=== PATIENT | female | born 1995 | race Caucasian/White ===

== ENCOUNTER 2025-02-04 13:16 | Outpatient (REF) | payer BC, SELFPAY ==
--- NOTE | ~2025-02-04 | MR_ITS ---
EXAMINATION: MR BRAIN WITHOUT CONTRAST CLINICAL INFORMATION: Fibromyalgia. Weakness and and numbness bilateral arm and hand. Ringing in ears. COMPARISON: None available. TECHNIQUE: MRI of the brain was obtained using routine sequences without contrast. FINDINGS: There is no restricted diffusion seen to suspect any acute ischemic changes. There is no susceptibility artifact either to suspect acute or chronic hemorrhagic products or calcification. The carbajal to white matter differentiation is maintained normal. The lateral ventricles are symmetrical in size and configuration without enlargement. Normal flow-void signal seen in major cerebral vasculature. No abnormal signal seen on T2 FLAIR sequences suspect any white matter changes or demyelinating plaques. The paranasal sinuses and mastoid air cells are well-aerated. Visualized bilateral orbits are unremarkable. No abnormality seen in the posterior fossa. MR/MR head/brain wo con IMPRESSION: Unremarkable MRI brain without contrast. Electronically signed by: Jonh Danielle MD 02/04/2025 04:03 PM EDT
== END 2025-02-04 13:17 | disposition home or self-care (01) ==
LOC: HO.MRI 13:16
PROVIDERS: Visit Provider Psychiatry & Neurology Neurology
DX: M79.7 Fibromyalgia (principal); R53.1 Weakness; R20.0 Anesthesia of skin; H93.19 Tinnitus, unspecified ear
CPT/HCPCS: 70551

== ENCOUNTER → 2025-02-04 13:25 | Outpatient (BNV) | payer BC, SELFPAY | PROVIDERS: Visit Provider Radiology Diagnostic Radiology | DX: M79.7 Fibromyalgia (principal); R53.1 Weakness; R20.2 Paresthesia of skin | CPT/HCPCS: 70551 ==

== ENCOUNTER 2025-02-08 06:28 | Emergency (ER) | payer BC, SELFPAY ==
--- NOTE | ~2025-02-08 | XR_ITS ---
EXAMINATION: XR CHEST CLINICAL INFORMATION: chest pain syncopie COMPARISON: None available. TECHNIQUE: Frontal view of the chest was obtained. FINDINGS: No consolidation, pleural effusion or pneumothorax. Cardiomediastinal silhouette size is normal. Mild S-shaped curvature of the mid thoracic spine. XR/XR chest 1V IMPRESSION: Normal chest x-ray. Mild dextroconvex scoliosis, mid thoracic spine. Electronically signed by: Peter Espana MD 02/08/2025 08:56 AM EDT
[2025-02-08 06:32] VITALS: BP 136/78; PULSE 85; RESP 16; TEMP 36.9; O2SAT 99; BMI 27.3
--- NOTE | 2025-02-08 06:43 | ECG_ITS ---
Test Reason : SYNCOPE Blood Pressure : */* mmHG Vent. Rate : 85 BPM Atrial Rate : 85 BPM P-R Int : 124 ms QRS Dur : 88 ms QT Int : 398 ms P-R-T Axes : 16 -7 4 degrees QTcB Int : 473 ms Normal sinus rhythm Normal ECG No previous ECGs available Referred By: Generic ED Physician Electronically Signed By: NENA SY MD
--- NOTE | 2025-02-08 07:20 | ED.SYNCOPE ---
HPI - Syncope General Chief Complaint: Syncope Stated Complaint: chest pain,fainted, slurred speech, confusion Time Seen by Provider: 02/08/25 07:04 History of Present Illness HPI narrative: Patient is a 30-year-old female presents today with having chest pain. The chest pain is mid chest. Is associated with some nausea. Today patient had some dizziness weakness nausea then felt somewhat lightheaded then also had an episode of syncope. Has a history of having possible POTS syndrome before patient denies any fever chills no cough no congestion or upper respiratory symptoms no sudden in the family. No travel no leg swelling. No history of blood clot not on blood thinners. Patient from home. Insert feeling somewhat nauseous. 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 Patient also had some mild coughing congestion upper respiratory symptoms. This is new. Ongoing for the last 2 days. Has a history of asthma. No history of diabetes, hypertension, high cholesterol, smoking, recreational drug use, mi. patient is from home. No risk stratification done in past. Patient describes the chest pain as constant it is mid chest. Started this morning. Not associated with shortness of breath or diaphoresis. May have been worsened with the nausea. No diarrhea. No sick contacts. No travel history. No recent antibiotics. No previous history of abdominal surgery. No history of bowel obstructions in the past Related Data Previous Rx's ?Medication ?Instructions ?Recorded levofloxacin 500 mg tablet 500 mg PO DAILY #10 tabs 05/25/23 meloxicam 15 mg tablet 15 mg PO DAILY #14 tabs 05/25/23 ondansetron 4 mg disintegrating 4 mg PO TID PRN nausea and 02/08/25 tablet vomiting 5 days #10 tabs Allergies Allergy/AdvReac Type Severity Reaction Status Date / Time amoxicillin [AMOXICILLIN] Allergy Unknown STOMACH Verified 02/08/25 08:41 UPSET Sulfa (Sulfonamide AdvReac hives Verified 02/08/25 08:41 Antibiotics) Review of Systems Review of Systems: Positive chest pain positive nausea PMFSH Past Medical History Attestation statement: The following information was validated with the patient. Social History Social History Advance Directives: No Advance Directives Information Provided: Yes Do you have a plan to hurt others: No Plan Physical Exam Vital Signs: Vital Signs: Last Vital Signs Temp 98.5 F 02/08/25 06:32 Pulse 85 02/08/25 06:32 Resp 16 02/08/25 06:32 BP 136/78 02/08/25 06:32 Pulse Ox 99 02/08/25 06:32 O2 Del Method Room Air 02/08/25 06:32 BMI result Body Mass Index 27.3 Appearance: Alert. Oriented X3. No acute distress. Eyes: Pupils equal, round and reactive to light. ENT: Pharynx normal. Neck: Normal inspection. Neck supple. No lymph nodes noted. No crepitus CVS: Normal heart rate and rhythm. Pulses normal. Normal S1 and S2 Respiratory: No respiratory distress. Breath sounds normal. No Wheezing. No rales Abdomen: Soft and nontender. No rigidity. No distention. good BS x4 Skin: Skin warm and dry. Normal skin color. Normal skin turgor. Extremities: No lower extremity edema. Neurovascular intact to all extremities. No Lacerations. No Rash Neuro: Oriented X 3. No motor deficit. No sensory deficit. Moving all extermities. No slurred speech Medications Administered Discontinued Medications Generic Name Dose Route Start Last Admin Trade Name Freq PRN Reason Stop Dose Admin Sodium Chloride 1,000 mls @ 999 mls/hr 02/08/25 07:30 02/08/25 09:56 Ns IV 02/08/25 08:30 Infused .Q1H1M NATHEN Infusion Sodium Chloride 1,000 mls @ 999 mls/hr 02/08/25 07:30 02/08/25 09:56 Ns IV 02/08/25 08:30 Infused .Q1H1M NATHEN Infusion Medical Decision Making Medical Decision Making [facility] Narrative: My interpretation patient's EKG showed a sinus rhythm heart rate is 70 NE QRS QTC normal no acute ST segment elevation noted. Two sets of cardiac enzymes are negative. Patient's history not consistent with ACS. Patient's passing out episode more consistent with having vasovagal episode. In no acute distress. Symptoms relieved after IV fluids. Electrolytes unremarkable. LFTs are normal lipase is normal no evidence for biliary disease. Patient's urine also negative for infection. test negative no related issue. Will discharge patient home close follow-up on an outpatient basis. Differential Diagnosis Differential Diagnoses: The differential diagnosis associated with the presentation includes Syncope versus ACS versus biliary issues versus gastritis versus vasovagal episode Admission/Observation Consideration of admission/observation: Escalation of care including admission/observation considered Lab Data MDM Lab Attestation statement: I reviewed the patient's lab results. 02/08/25 08:06 02/08/25 08:06 Labs: Lab Results 02/08/25 02/08/25 02/08/25 Range/Units 08:06 08:15 08:16 WBC 6.0 (4.8-10.8) X10*3/uL RBC 3.77 L (4.20-5.50) X10*6/uL Hgb 11.9 L (12.0-16.0) g/dl Hct 35.0 L (37.0-47.0) % MCV 92.8 (80.0-98.0) fL MCH 31.6 (27.0-33.0) pg MCHC 34.0 (31.0-35.0) g/dl RDW 12.6 (11.0-16.0) % Plt Count 242 (160-400) X10*3/uL MPV 10.3 (9.4-12.3) fL Immature Gran % (Auto) 0.2 (0.0-0.4) % Neut % (Auto) 56.4 (45-73) % Lymph % (Auto) 32.9 (20-40) % [place] % (Auto) 8.8 (2-11) % Eos % (Auto) 1.0 (0-4) % Baso % (Auto) 0.7 (0-2) % Lymph # (Auto) 2.0 (1.2-4.9) X10*3/uL [place] # (Auto) 0.5 (0.1-1.2) X10*3/uL Eos # (Auto) 0.1 (0.0-0.4) X10*3/uL Baso # (Auto) 0.0 (0.0-0.2) X10*3/uL Abs Immat Gran (auto) 0.01 (0.00-0.03) X10*3/uL Absolute Neuts (auto) 3.4 (2.0-8.3) x10*3/uL Absolute Nucleated RBC 0.000 (0.0-0.012) X10*3/uL Nucleated RBC % (auto) 0.0 (0.0-0.2) /100WBC Sodium 139 (135-145) mmol/L Potassium 3.7 (3.3-5.1) mmol/L Chloride 107 (96-108) mmol/L Carbon Dioxide 25 (22-29) mmol/L Anion Gap 11 L (12-20) BUN 9 (9-16) mg/dL Creatinine 0.73 (0.5-1.4) mg/dL Estim Creat Clear Calc 110.7 Estimated GFR > 60 Random Glucose 94 (60-115) mg/dL Calcium 9.1 (8.4-10.2) mg/dL Total Bilirubin 0.8 (0.0-1.0) mg/dL Direct Bilirubin 0.2 (0.0-0.5) mg/dL AST 23 (5-31) U/L ALT 14 (0-31) U/L Alkaline Phosphatase 56 (39-117) U/L Troponin I High Sens < 2.7 (<3.5-17.0) ng/L Total Protein 6.7 (6.5-8.0) g/dL Albumin 4.1 (3.5-5.0) g/dL Lipase 18 (8-78) U/L Urine Color Yellow Urine Appearance Clear Urine pH 6.5 (5.0-9.0) Ur Specific [place] 1.025 (1.005-1.025) Urine Protein Trace (Neg-Trace) mg/dL Urine Glucose (UA) Negative (Negative) mg/dL Urine Ketones Negative (Negative) mg/dL Urine Blood Negative (Negative) Urine Nitrite Negative (Negative) Ur Leukocyte Esterase Negative (Negative) Urine Test NEGATIVE (NEGATIVE) Influenza Type A (PCR) NEGATIVE (Negative) Influenza Type B (PCR) NEGATIVE (Negative) RSV RNA Qual (PCR) NEGATIVE (Negative) SARS-CoV-2 RNA (RT-PCR) NEGATIVE (Negative) 02/08/25 Range/Units 10:12 WBC (4.8-10.8) X10*3/uL RBC (4.20-5.50) X10*6/uL Hgb (12.0-16.0) g/dl Hct (37.0-47.0) % MCV (80.0-98.0) fL MCH (27.0-33.0) pg MCHC (31.0-35.0) g/dl RDW (11.0-16.0) % Plt Count (160-400) X10*3/uL MPV (9.4-12.3) fL Immature Gran % (Auto) (0.0-0.4) % Neut % (Auto) (45-73) % Lymph % (Auto) (20-40) % [place] % (Auto) (2-11) % Eos % (Auto) (0-4) % Baso % (Auto) (0-2) % Lymph # (Auto) (1.2-4.9) X10*3/uL [place] # (Auto) (0.1-1.2) X10*3/uL Eos # (Auto) (0.0-0.4) X10*3/uL Baso # (Auto) (0.0-0.2) X10*3/uL Abs Immat Gran (auto) (0.00-0.03) X10*3/uL Absolute Neuts (auto) (2.0-8.3) x10*3/uL Absolute Nucleated RBC (0.0-0.012) X10*3/uL Nucleated RBC % (auto) (0.0-0.2) /100WBC Sodium (135-145) mmol/L Potassium (3.3-5.1) mmol/L Chloride (96-108) mmol/L Carbon Dioxide (22-29) mmol/L Anion Gap (12-20) BUN (9-16) mg/dL Creatinine (0.5-1.4) mg/dL Estim Creat Clear Calc Estimated GFR Random Glucose (60-115) mg/dL Calcium (8.4-10.2) mg/dL Total Bilirubin (0.0-1.0) mg/dL Direct Bilirubin (0.0-0.5) mg/dL AST (5-31) U/L ALT (0-31) U/L Alkaline Phosphatase (39-117) U/L Troponin I High Sens < 2.7 (<3.5-17.0) ng/L Total Protein (6.5-8.0) g/dL Albumin (3.5-5.0) g/dL Lipase (8-78) U/L Urine Color Urine Appearance Urine pH (5.0-9.0) Ur Specific [place] (1.005-1.025) Urine Protein (Neg-Trace) mg/dL Urine Glucose (UA) (Negative) mg/dL Urine Ketones (Negative) mg/dL Urine Blood (Negative) Urine Nitrite (Negative) Ur Leukocyte Esterase (Negative) Urine Test (NEGATIVE) Influenza Type A (PCR) (Negative) Influenza Type B (PCR) (Negative) RSV RNA Qual (PCR) (Negative) SARS-CoV-2 RNA (RT-PCR) (Negative) Independent Interpretation I performed an independent interpretation of an: EKG (Sinus heart rate is 70 NE QRS QTC normal no acute ST segment elevation) and Plain X-Ray (Chest x-ray negative) Radiology Impression Discussion of test interpretation with radiology: I have reviewed the radiologist's reading. Prescription Management I considered prescription management with: Antibiotic (Not needed urine not infected) Chronic Conditions pots Discharge Plan Discharge Clinical Impression: Vasovagal syncope Patient Disposition: Home, Self-Care Instructions: Chest Pain (ED), Syncope (ED) Prescriptions: New ondansetron 4 mg tablet,disintegrating 4 mg PO TID PRN (Reason: nausea and vomiting) 5 Days Qty: 10 0RF No Action levofloxacin 500 mg tablet 500 mg PO DAILY Qty: 10 0RF meloxicam 15 mg tablet 15 mg PO DAILY Qty: 14 0RF Referrals: Physician,Unknown J [Primary Care Provider] - 02/10/25 Print Language: Greenlandic
[2025-02-08 08:11] LABS: MANUAL DIFF FLAG NO
[2025-02-08 08:12] LABS: Basophils Percent Auto 0.7 % (0-2); Eosinophils Absolute Auto 0.1 X10*3/uL (0.0-0.4); Hemoglobin 11.9 g/dl (12.0-16.0); Imm Gran Abs Auto 0.01 X10*3/uL (0.00-0.03); Imm Gran Pct Auto 0.2 % (0.0-0.4); Lymphocytes Percent Auto 32.9 % (20-40); Mean Corpuscular Hemoglobin 31.6 pg (27.0-33.0); Mean Corpuscular Volume 92.8 fL (80.0-98.0); Mean Platelet Volume 10.3 fL (9.4-12.3); Monocytes Absolute Auto 0.5 X10*3/uL (0.1-1.2); Monocytes Percent Auto 8.8 % (2-11); Neutrophils Absolute Auto 3.4 x10*3/uL (2.0-8.3); Neutrophils Percent Auto 56.4 % (45-73); Platelet Count 242 X10*3/uL (160-400); Red Blood Count 3.77 X10*6/uL (4.20-5.50); Red Cell Distribution Width 12.6 % (11.0-16.0)
[2025-02-08 08:26] LABS: Appearance Urine Clear; Color Urine Yellow; Glucose Urine UA Negative (Negative); Leukocyte Esterase Urine Negative (Negative); Nitrite Urine Negative (Negative); PH 6.5 (5.0-9.0); Specific Gravity - Urine 1.025 (1.005-1.025); Urine Blood Negative (Negative); Urine Ketones Negative (Negative); Urine Protein Trace mg/dL (Neg-Trace)
[2025-02-08 08:27] LABS: UPreg QC Valid YES; Urine Pregnancy NEGATIVE (NEGATIVE)
[2025-02-08 08:28] LABS: Anion Gap 11 (12-20); Blood Urea Nitrogen 9 mg/dL (9-16); Calcium 9.1 mg/dL (8.4-10.2); Carbon Dioxide 25 mmol/L (22-29); Chloride 107 mmol/L (96-108); Creatinine Clr Calc Pharmacy 110.7; Estimated Glomerular Filt Rate > 60; Glucose Random 94 mg/dL (60-115); Potassium 3.7 mmol/L (3.3-5.1); Sodium 139 mmol/L (135-145)
[2025-02-08 08:32] LABS: Alanine Aminotransferase 14 U/L (0-31); Albumin Level 4.1 g/dL (3.5-5.0); Alkaline Phosphatase 56 U/L (39-117); Aspartate Amino Transferase 23 U/L (5-31); Bilirubin Direct 0.2 mg/dL (0.0-0.5); Bilirubin Total 0.8 mg/dL (0.0-1.0); Lipase 18 U/L (8-78); Total Protein 6.7 g/dL (6.5-8.0)
[2025-02-08 08:40] LABS: Troponin-I High Sensitivity < 2.7 ng/L (<3.5-17.0)
[2025-02-08] MEDS: 0.9 % Sodium Chloride 1,000 ML 999 ML IV ×2 (08:41)
[2025-02-08 09:50] LABS: Influenza A PCR NEGATIVE (Negative); Influenza B PCR NEGATIVE (Negative); Resp Syncy Virus RNA Qual PCR NEGATIVE (Negative); SARS COV2 PCR INHOUSE NEGATIVE (Negative)
[2025-02-08 10:48] LABS: Troponin-I High Sensitivity < 2.7 ng/L (<3.5-17.0)
[2025-02-08 12:07] VITALS: BP 136/78; PULSE 85; RESP 16; TEMP 36.9; O2SAT 99
== END 2025-02-08 12:07 | disposition home or self-care (01) ==
PROVIDERS: Emergency Provider Emergency Medicine Emergency Medical Services
DX: R55 Syncope and collapse (principal); R47.81 Slurred speech; R41.0 Disorientation, unspecified; R42 Dizziness and giddiness; R05.9 Cough, unspecified; R11.0 Nausea; R07.89 Other chest pain; Z03.818 Encounter for observation for suspected exposure to other biological agents ruled out; Z79.899 Other long term (current) drug therapy
CPT/HCPCS: 0241U; 36415; 71045; 80048; 80076; 81003; 81025; 83690; 84484; 85025; 93005; 96360; 99284

== ENCOUNTER → 2025-02-08 06:43 | Outpatient (BNV) | payer BC, SELFPAY | PROVIDERS: Emergency Provider Emergency Medicine Emergency Medical Services; Visit Provider Internal Medicine Cardiovascular Disease | DX: R55 Syncope and collapse (principal) | CPT/HCPCS: 93010 ==

== ENCOUNTER → 2025-02-08 06:43 | Outpatient (BNV) | payer BC, SELFPAY | PROVIDERS: Emergency Provider Emergency Medicine Emergency Medical Services; Visit Provider Radiology Diagnostic Radiology | DX: R07.9 Chest pain, unspecified (principal) | CPT/HCPCS: 71045 ==

== ENCOUNTER 2025-08-10 10:15 | Outpatient (AMB) | payer BC, SELFPAY ==
[2025-08-10 10:18] VITALS: BP 118/70; PULSE 87; RESP 18; TEMP 36.3; O2SAT 98; BMI 27.0
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
--- OUTSIDE RECORDS SUMMARY | 2025-08-10 12:26 | XMS_ITS | Encounter Summary ---
Author Organization [facility] Address [address] [place] [id number] Phone Care Team Providers Care Kosher Dietary Service Supervisor Name Role Phone Zara Roberts [employer]ING [employer]SEM[employer]ER Primary Care Provider Un available Encounter Details Date Type Department Care Team (Late st Contact Info) Description 11/26/2011 Documentation EM Family Medicine [address] [place] [address] Family Medicine, Physician [address] [place], [place] [id number] Social History Tobacco Use Types Packs/Day Years Used Date Smoking Tobacco: Never Assessed Comments Unknown Sex and Gender Information Value Date Recorded Sex Assigned at Not on file Legal Sex Female 4:45 PM EDT Gender Identity Not on file Sexual Orientation Not on file documented as of this encounter Plan of Treatment Not on file documented as of this encounter Visit Diagnoses Not on filedocumented in this encounter Care Teams Kosher Dietary Service Supervisor Relationship Specialty Start Date End Date Zara Roberts NP PCP - General 06/28/17 documented as of this encounter
--- OUTSIDE RECORDS SUMMARY | 2025-08-10 12:26 | XMS_ITS | Encounter Summary ---
Author Organization [facility] Address [address] [place] [address] Care Team Providers Care Comic Writer Name Role Phone Sylvia Rose MD Primary Care Provider [phone] Reason for Visit * Reason Onset Date Comments No Show 08/06/2025 9.18.25 Encounter Details Date Type Department Care Team ([facility] st Contact Info) Description 08/06/[address] [facility] [address] [facility] [address] [place] [address] Erwin Marquez MD [address] [place] [address] [address] [place] [address] Social History Tobacco Use Types Packs/Day Years Used Date Smoking Tobacco: Never Smokeless Tobacco: Never Alcohol Use Standard Drinks/Week Comments Not Currently 0 (1 standard drink = 0.6 oz pur e alcohol) Housing Instability Answer Date Recorde d Are you worried that in the next 2 months you may not have stable housing? No 11/05/2024 Food Access & Nutrition Answer Date Rec orded Do you have access to a vari ety of food including fruits and vegetables? Yes 11/05/2024 Access to Healthcare Answer Date Record ed Within the last 3 months, ho w many times did you visit the emergency department for your medical care? 0 11/05/2024 Health Literacy Answer Date Recorded How often do you need to hav e someone help you when you read instructions, pamphlets, or other written material from your doctor or pharmacy? Never 11/05/2024 Caregiver: How often do you need to have someone help you when you read instructions, pamphlets, or other written material from your doctor or pharmacy? Not on file 11/05/2024 Financial Risk Answer Date Recorded How hard is it for you to pa y for the very basics like food, housing, medical care, and air conditioning / heating? Not very hard 11/05/2024 Transportation Answer Date Recorded Has the lack of transportati on kept you from meetings, work, or from getting things needed for daily living? No Has the lack of transportati on kept you from medical appointments or from getting medications? No 11/05/2024 Social Isolation Answer Date Recorded How often do you feel lonely or isolated from th ose around you? Rarely 11/05/2024 Food Risk Answer Date Recorded Within the past 12 months we worried whether our food would run out before we got money to buy more. Never true 11/05/2024 Within the past 12 months th e food we bought just didn't last and we didn't have money to get more. Never true 11/05/2024 Dependent Care Answer Date Recorded Do you need help finding or paying for care for your loved ones. For example, children's ministry director or elderly care for an older adult? No 11/05/2024 Education Answer Date Recorded Do you think completing more education or training, like finishing a GED, going to college, or learning a trade, would be helpful for you? N/A 11/05/2024 Employment and Income Answer Date Recor ded During the last four weeks, have you been actively looking for work? No 11/05/2024 Living Situation Answer Date Recorded What is your living situation? 1 01/06/2024 Comments No Sex and Gender Information Value Date Recorded Sex Assigned at Not on file Legal Sex Female 5:51 PM EST Gender Identity Not on file Sexual Orientation Not on file documented as of this encounter Progress Notes * Pati Shaikh MA - 08/06/2025 2:53 PM EDT Letter sent with information on no showed appointment and no show policy documented in this encounter Plan of Treatment Not on file documented as of this encounter Visit Diagnoses Not on filedocumented in this encounter Additional Health Concerns Assessment Noted Time PHQ-9 Depression Total Score: 1 11/05/20 24 6:05 AM EST documented as of this encounter Care Teams Comic Writer Relationship Specialty Start Date End Date Sylvia Rose MD [address] [place] [id number] PCP - General 08/06/24 documented as of this encounter
--- OUTSIDE RECORDS SUMMARY | 2025-08-10 12:26 | XMS_ITS | Clinical Summary ---
Author Organization [facility] Address [address] [place] [address] Care Team Providers Care Tour Operator Name Role Phone Ref, Has No Pcp Or Primary Care Provider Unavail able Allergies Active Allergy Reactions Criticality Noted Date Comments Amoxicillin Rash,Vomiting 11/28/2021 Sulfamethoxazole-Trimethopri m Back pain,Hives,Itching,Joint pain,Rash 11/28/2021 Medications fluticasone propionate (FLONASE) 50 mcg/actuation nasal spray Administer 1-2 sprays into each nostril once a day. 1 Active ibuprofen (MOTRIN) 800 mg tablet 1 Active albuterol (PROAIR HFA,VENTOLIN HFA) 90 mcg inhaler Inhale 2 puffs (180 mcg total) by mouth every 4 hours as needed for wheezing or shortness of breath. Use with spacer. 8.5 g 11 3 Active icatibant (FIRAZYR) 30 mg/3 mL subcutaneous injectionIndicati ons:Hereditary angioedema type 3 (HCC) Inject 30mg (3mL) under the skin injected into the abdominal area, and may repeat after 6 hours, maximum of 3 doses in a 24 hour period. 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 Asthma 11/28/2021 Social History Tobacco Use Types Packs/Day Years Used Date Smoking Tobacco: Never Smokeless Tobacco: Never Tobacco Cessation:Counseling Given: Not Answered Comments Unknown Sex and Gender Information Value Date Recorded Sex Assigned at Female 11/27/2021 10:52 PM EST Legal Sex Female 10:01 AM EST Gender Identity Female 11/27/2021 10:52 PM EST Sexual Orientation Bisexual 11/27/2021 10 :52 PM EST Last Filed Vital Signs Vital Sign Reading Time Taken Comments Blood Pressure 132/84 07/17/2022 10:00 AM EDT Pulse 84 07/17/2022 10:00 AM EDT Temperature - - Respiratory Rate 16 07/17/2022 10:00 AM EDT Oxygen Saturation 97% 07/17/2022 10:00 AM EDT Inhaled Oxygen Concentration - - Weight 67 kg (147 lb 12.8 oz) 07/17/2022 10:00 A M EDT Height 165.1 cm (5' 5 ) 07/17/2022 10:00 AM EDT Body Mass Index 24.6 07/17/2022 10:00 AM EDT Plan of Treatment Upcoming Encounters Date Type Department Care Team (Late st Contact Info) Description 10/28/2025 9:40 AM EST Follow-Up [facility] [address] [place] [id number] Human Machine Interface Engineer: Junior Morris, Real Tobin MD [address] [place] [address] [phone] Health Maintenance Due Date Last Done Comments HIV Screening 1996 Hepatitis C Screening 1996 Pneumococcal Vaccine: Pediat alida (0-5 Years) and At-Risk Patients (6-50 Years) (1 of 2 - PCV) 2015 Alcohol/Substance Use Screening 11/18/2024 Depression Screening and Follow-Up 11/18/2024 Social Drivers of Health Linda ual Screening 11/18/2024 COVID-19 Vaccine (3 - 2024-2 6 season) 2025 03/20/2021, 02/26/2021 Influenza Vaccine (#1) 2025 , 02/26/2021, 09/09/2013, Additional history exists Pap Smear 02/06/2026 02/06/2023 DTaP,Tdap,and Td Vaccines (8 - Td or Tdap) 09/12/2031 09/12/2021, 02/17/2007, 03/11/2000, Additional history exists RSV Vaccine (60+ years old a nd patients) (1 - 1-dose 75+ series) 2071 Hepatitis B Vaccines Completed 1996, 1996, 1996 Varicella Vaccines Completed 07/05/2010, 04/10/1999 Insurance HSNO/FREE CARE Care Teams Tour Operator Relationship Specialty Start Date End Date Ref, Has No Pcp Or DO NOT EDIT THIS RECORD VIA PROVIDER ON THE FLY PCP - General Fireworks Assembly Supervisor 10/20/24
--- OUTSIDE RECORDS SUMMARY | 2025-08-10 12:26 | XMS_ITS | Clinical Summary ---
Author Organization [facility] Address [address] [place] [address] Phone Care Team Providers Care Movement Assembly Final Inspector Name Role Phone Sylvia Rose MD Primary Care Provider [phone] Allergies Active Allergy Reactions Criticality Noted Date Comments Amoxicillin 09/08/2024 vomiting Sulfamethoxazole-Trimethopr im 09/08/2024 Prescribed for UTI , last day of dose of Bactrim had SOB and chest tightness treated with albuterol HIves, and joint pains Medications azelaic acid (FINACEA) 15 % gel APPLY THIN LAYER TO THE FACE ONCE NIGHTLY. 4 Active albuterol HFA (PROVENTIL HFA;VENTOLIN HFA) 108 (90 Base) MCG/ACT inhaler INHALE 2 PUFFS INTO THE LUNGS EVERY 4 HOURS NEEDED FOR COUGH OR WHEEZING OR SHORTNESS OF BREATH Active cholecalciferol (VITAMIN D3) 10 mcg/mL (400 unit/mL) liquid Take 1 Capsule by mouth daily. Per Derm - Oral Active fluticasone propionate (FLONASE) 50 mcg/actuation nasal spray 1-2 puffs each nostril daily Active ibuprofen (ADVIL,MOTRIN) 600 mg tablet TAKE 1 TABLET BY MOUTH EVERY 8 HOURS NEEDED FOR PAIN Active icatibant 30 mg/3 mL syringe Inject 30 mg into the skin every 6 hours as needed (HAE ATTACK). Inject into the abdomen over 30 seconds, using the 25 gauge needle provided. If laryngeal attack or tongue attack, please call 911 - Subcutaneous Active metFORMIN XR (GLUCOPHAGE-XR) 500 mg 24 hr tablet TAKE 1 TABLET BY MOUTH DAILY WITH BREAKFAST Active metroNIDAZOLE (METROGEL) 0.75 % gel Apply to face twice daily. Active ferrous sulfate 325 mg (65 mg elemental iron) tablet Take 1 tablet (325 mg total) by mouth 1 (one) time each day with breakfast. Active Active Problems Problem Noted Date Diagnosed Date Vasovagal syncope 08/04/2025 Anxiety 09/08/2024 COVID-19 09/08/2024 Hereditary angioedema (CMS/HCC V24, CMS/HCC V28) 09/08/2024 Mild intermittent asthma 09/08/2024 Seasonal allergic rhinitis 09/08/2024 Encounters Date Type Department Care Team Description 08/06/2025 Telephone [facility] [address] [facility] [address] [place] [address] Erwin Marquez MD from Last 3 Months Immunizations Name Administration Dates Next Due DTP 1996,1996,1996 DTaP (Infanrix) 6wks to less than 7yo ,07/26/1997,1996,05/13,1996 DTaP 5 pertussis antigens, D iptheria Tetanus acellular pertussis (Daptacel) 6wks to less than 7yo 03/11/2000,07/26/1997 DTaP, Unspecified 03/11/2000, 7,1996,05/13,1996 [id number] (Pentacel) 2mo to less than 5yo 04/02/1997,1996,1996,03/16 HPV, Quadrivalent 08/31/2008,04/29/2008,02/23/20 08 HPV, Unspecified 08/31/2008,04/29/2008, 8 Hepatitis B (Hovojfq-O-Bwecl , Recombivax HB-Adult) 19yo and older 1996,1996,1996 Hepatitis B Pediatric (Enger ix B; Recombivax HB) to less than 20 yo 1996,1996,1996 HiB 04/02/1997, 6,1996,03/16 HiB PRP-T conjugate (Acthib, Hiberix) 6wks and older 04/02/1997,1996,1996,03/16 IPV Inactivated polio (Ipol) 6wks and older 03/11/2000,07/26/1997,1996,05/13,1996 Influenza Quadrivalent, 0.5m l, preservative free (Fluarix; FluLaval; Fluzone) ages 6mo and older (Afluria) 3yo and older 09/09/2013 Influenza Split 08/01/2012,01/05/2011 Influenza trivalent, with pr eservative (Fluzone; Afluria) 6mo and older 08/31/2008 Influenza, Unspecified 03/20/2021,2020,08/01/2012,08/01,01/05/2011,01/05/2011,08/31/2008 MMR, measles mumps and rubel la Live (Priorix; M-M-R II) 12mo and older 03/11/2000,04/02/1997 Meningococcal MCV4P 02/17/2007 Meningococcal Polysaccharide 02/17/2007 Polio, Unspecified 03/11/2000, 7,1996,05/13,1996 Tdap Tetanus diptheria acell ular pertussis (Boostrix; Adacel) 7yo and older 09/12/2021,02/17/2007 Varicella live (Varivax) 12m o and older 07/05/2010,04/10/1999 Surgical History Surgery Date Site/Laterality Comments ESOPHAGOGASTRODUODENOSCOPY 05/31/2017 PROCEDURE: SD ESOPHAGOGASTRODUODENOSCOPY TRANSORAL DIAGNOSTIC; COMMENT: normal Medical History Medical History Date Comments Asthma DX:Asthma; COMME NT: on maitnence Vegetarian 06/19/2017 DX:Vegetarian Anxiety 09/22/2018 DX:Anxiety Covid-19 DX:COVID-19 Family History Medical History Relation Name Comments Other: Aspberger's Brother 1 Crohn's disease Brother 2 Arthritis Father Breast cancer Grandparent Great Grandmother Mothers s juan Other: Other Mother seizure disorde r Other: hereditary angioedema Mother Other cancer Paternal Grandmother Cervical cancer Neg Hx Uterine cancer Neg Hx Relation Name Status Comments Brother 1 Alive Brother 2 Alive Father Alive Grandparent Great Grandmother Alive Maternal Grandfather Alive Maternal Grandmother Alive Mother Alive Paternal Grandfather Paternal Grandmother Alive Social History Tobacco Use Types Packs/Day Years Used Date Smoking Tobacco: Never Smokeless Tobacco: Never Tobacco Cessation:Counseling Given: Not Answered Alcohol Use Standard Drinks/Week Comments Not Currently [...] care for your loved ones. For example, exceptional children teacher assistant or elderly care for an older adult? [...] on file Sexual Orientation Not on file Obstetrics History Last Filed Vital Signs Vital Sign Reading Time Taken Comments Blood Pressure 102/68 03/12/2025 1:54 PM EDT Pulse 100 03/12/2025 1:54 PM EDT Temperature 36.8 C (98.3 F) 03/12/2025 1:54 PM EDT Respiratory Rate - - Oxygen Saturation 100% 09/24/2024 3:30 PM EST Inhaled Oxygen Concentration - - Weight 69.9 kg (154 lb) 03/12/2025 1:54 PM EDT Height 160 cm (5' 3 ) 11/05/2024 9:35 AM EST Body Mass Index 27.28 11/05/2024 9:35 AM EST Plan of Treatment Health Maintenance Due Date Last Done Comments Pneumococcal Vaccine: Pediatrics (0 to 5 Years) and At-Risk Patients (6 to 49 Years) (1 of 2 - PCV) 2015 HIV Screening 10/12/2020 Hepatitis C Screening 10/12/2020 COVID-19 Vaccine (3 - Pfizer risk series) 04/17/2021 03/20/2021, 02/26/2021 Depression Screening 11/18/2024 11/05/2024 Influenza Vaccine (#1) 2025 , 02/26/2021, 09/09/2013, Additional history exists Social Influencers of Health Screening 11/05/2025 11/05/2024 Cervical Cancer Screening: Pap Smear 02/06/2026 02/06/2023, 02/06/2023, 02/06/2023, Additional history exists Cholesterol Screening (Lipid Panel) 01/27/2029 01/28/2024 DTaP,Tdap,and Td Vaccines (8 - Td or Tdap) 09/12/2031 09/12/2021, 02/17/2007, 03/11/2000, Additional history exists RSV Immunization Adult Patients (1 - 1-dose 75+ series) 2071 Hepatitis B Vaccines Completed 1996, 1996, 1996, Additional history exists HIB Vaccines Completed 04/02/1997, 03/18, 04/02/1997, Additional history exists IPV Vaccines Completed 03/11/2000, 02/17, 07/26/1997, Additional history exists MMR Vaccines Completed 03/11/2000, 04/02/1997 Meningococcal ACWY Vaccine Aged Out 02/17/2007, No longer eligible based on patient's age to complete this topic HPV Vaccines Completed 08/31/2008, 08/18, 04/29/2008, Additional history exists Varicella Vaccines Completed 07/05/2010, 04/10/1999 Gonorrhea/Chlamydia Screening Discontinued 07/27/2021 Hepatitis A Vaccines Aged Out No long er eligible based on patient's age to complete this topic Meningococcal B Vaccine Aged Out No l onger eligible based on patient's age to complete this topic RSV Immunization Patients Under 20 months Aged Out No longer eligible based on patient's age to complete this topic Procedures Procedure Name Priority Date/Time Associated Diagnosis Comments LIPID PANEL Routine 01/28/2024 PAP SMEAR Routine 02/06/2023 HM GONORRHEA/CHLAMYDIA SCRREENING Routine 07/27/2021 from Last 3 Months or Most Recently Relevant to Health Maintenance Results * Lipid panel (01/28/2024) LDL/HDL Ratio 2 0 - 4 Triglycerides 104 0 - 150 mg/dL Cholesterol 184 0 - 200 mg/dL HDL 82 >=40 mg/dL LDL Cholesterol 82 0 - 100 mg/dL Blood Venous blood specimen / Unknown Historical Provider LAB BLOOD ORDERABLES Graciela l Result * Pap smear (02/06/2023) 02/06/2023 Narrative HISTORICAL TESTING LAB RESULTING AGENCY - 02/18/2023 6:31 AM EDT [id number] THINPREP PAP, IMAGED: NEGATIVE FOR SQUAMOUS INTRAEPITHELIAL LESION AND MALIGNANCY . ABBI OWENS(ASCP) (CASE ELECTRONICALLY SIGNED 02 16 2023) ADEQUACY: SATISFACTORY ENDOCERVICAL/TRANSFORMATION ZONE COMPONENT PRESENT. SOURCE: THINPREP PAP HPV IF ASCUS, CERVICAL, IMAGED CLINICAL INFORMATION: HPV IF DIAGNOSIS OF ASCUS. HORMONES, PAP HX NEGATIVE, [Z01.419] Jane Parks CNM LAB CYTOLOGY ORDERABLES Final Result HISTORICAL TESTING LAB RESULTING AGENCY * Gonorrhea/Chlamydia Screening (07/27/2021) Gonorrhea/Chla mydia Screening abstracted Historical Provider HEALTH MAINTENANCE Final Result from Last 3 Months or Most Recently Relevant to Health Maintenance Insurance [facility] Care Teams Movement Assembly Final Inspector Relationship Specialty Start Date End Date Sylvia Rose MD [address] [place] [address] [place] [address] PCP - General 08/06/24
--- OUTSIDE RECORDS SUMMARY | 2025-08-10 12:26 | XMS_ITS | Clinical Summary ---
Author Organization [facility] Address [address] [place] [phone] Phone Care Team Providers Care Almond Paste Molder Name Role Phone Zara Roberts NP Primary Care Provider Un available Immunizations Immunization Administration Dates Next Due DTP 1996,1996,1996 DTaP 5 03/11/2000,07/26/1997 HPV, Quadrivalent 08/31/2008,04/29/2008,02/23/20 08 Hep B, ped/adol 1996,1996,1996 Hib (PRP-T) 04/02/1997,199 6,1996,03/16 IPV 03/11/2000, 7,1996,05/13,1996 Influenza Split 08/01/2012,01/05/2011 Influenza, injectable, quadr ivalent, preservative free 09/09/2013 Influenza, injectable, trivalent 08/31/2008 MMR 03/11/2000,04/02/1997 Meningococcal Conj (Menactra) MCV4P 02/17/2007 Tdap 02/17/2007 Varicella 07/05/2010,04/10/1999 Family History Relation Name Status Comments Brother Brother: ADD/AD HD Father Alive Father: Alive a nd well, Migraines Mother Mother: Seizure disorder, Angiodema, Migraines Other Family history of Diabetes mellitus, Family history of Obesity, Family history of Elevated cholesterol Social History Tobacco Use Types Packs/Day Years Used Date Smoking Tobacco: Never Comments:Never smoker Comments Unknown Sex and Gender Information Value Date Recorded Sex Assigned at Not on file Legal Sex Female 4:45 PM EDT Gender Identity Not on file Sexual Orientation Not on file Last Filed Vital Signs Vital Sign Reading Time Taken Comments Blood Pressure 116/73 10/08/2013 12:00 AM EST Pulse 84 10/08/2013 12:00 AM EST Temperature 36.6 C (97.8 F) 10/08/2013 12:00 AM EST Respiratory Rate - - Oxygen Saturation - - Inhaled Oxygen Concentration - - Weight 60.8 kg (134 lb) 10/08/2013 12:00 AM EST Height 162.6 cm (5' 4 ) 10/08/2013 12:00 AM EST Body Mass Index 23 10/08/2013 12:00 AM EST Plan of Treatment Health Maintenance Due Date Last Done Comments DTaP,Tdap,and Td Vaccines (7 - Td or Tdap) 02/17/2017 02/17/2007, 03/11/2000, 07/26/1997, Additional history exists Influenza Vaccines (#1) 2025 09/09/20 13, 08/01/2012, 01/05/2011, Additional history exists COVID-19 Vaccine ( season) 2025 Hepatitis B Vaccines Completed 1996, 1996, 1996 HIB Vaccines Completed 04/02/1997, 06/19, 1996, Additional history exists IPV Vaccines Completed 03/11/2000, 06/1997, 1996, Additional history exists MMR Vaccines Completed 03/11/2000, 04/02/1997 Meningococcal Vaccine Aged Out 02/17/2007 No jacqueline oksana eligible based on patient's age to complete this topic HPV Vaccines Completed 08/31/2008, 04/18, 02/23/2008 Varicella Vaccines Completed 07/05/2010, 04/10/1999 Hepatitis A Vaccines Aged Out No long er eligible based on patient's age to complete this topic Men B Vaccine Aged Out No longer elig ible based on patient's age to complete this topic Pneumococcal Vaccine Aged Out No long er eligible based on patient's age to complete this topic Care Teams Almond Paste Molder Relationship Specialty Start Date End Date Zara Roberts NP PCP - General 06/28/17
--- OUTSIDE RECORDS SUMMARY | 2025-08-10 12:26 | XMS_ITS | Encounter Summary ---
Author Organization [facility] Address [address] [place] [phone] Phone Care Team Providers Care Insert Operator Name Role Phone Zara Roberts REMOTE CONTROL ASSEMBLER Primary Care Provider Un available Encounter Details Date Type Department Care Team (Late st Contact Info) Description 07/04/2017 Conversion Encounter [facility] - [address] [address] Social History Tobacco Use Types Packs/Day Years [...] on filedocumented in this encounter Care Teams Insert Operator Relationship Specialty Start Date End Date Zara Roberts NP PCP - General 06/28/17 documented as of this encounter
== END 2025-08-10 12:12 | disposition home or self-care (01) ==
LOC: HO.HMCH 10:16
DX: F32.81 Premenstrual dysphoric disorder (principal); M25.50 Pain in unspecified joint; M54.2 Cervicalgia; R53.83 Other fatigue; R55 Syncope and collapse; R42 Dizziness and giddiness; K59.00 Constipation, unspecified; R14.0 Abdominal distension (gaseous); E55.9 Vitamin D deficiency, unspecified; G43.109 Migraine with aura, not intractable, without status migrainosus

== ENCOUNTER 2025-08-10 10:15 | Outpatient (REF) | payer BC, SELFPAY ==
--- NOTE | ~2025-08-10 | XR_ITS ---
EXAM: Three-view cervical spine x-ray TECHNIQUE: AP, lateral, open-mouth odontoid x-rays of the cervical spine INDICATION: Cervicalgia PRIOR: None FINDINGS: There is straightening of the cervical lordosis. There is no prevertebral soft tissue swelling. Disc spaces are preserved. No degenerative changes are evident. No fracture lines are visualized. XR/XR cervical spine 3V IMPRESSION: There is straightening of the expected cervical lordosis. This can be idiopathic, but can also be related to muscle spasm, or posterior soft tissue injury. Electronically signed by: José Coats MD 08/10/2025 01:18 PM EDT
[2025-08-10 12:48] LABS: MANUAL DIFF FLAG NO
[2025-08-10 14:20] LABS: Hematocrit 37.1 % (37.0-47.0); Hemoglobin 12.3 g/dl (12.0-16.0); Imm Gran Abs Auto 0.01 X10*3/uL (0.00-0.03); Imm Gran Pct Auto 0.2 % (0.0-0.4); Lymphocytes Absolute Auto 1.4 X10*3/uL (1.2-4.9); Mean Corpuscular HGB Conc 33.2 g/dl (31.0-35.0); Mean Corpuscular Hemoglobin 31.1 pg (27.0-33.0); Mean Corpuscular Volume 93.7 fL (80.0-98.0); NRBC Abs Auto 0.000 X10*3/uL (0.0-0.012); NRBC Pct Auto 0.0 /100WBC (0.0-0.2); Platelet Count 283 X10*3/uL (160-400); Red Blood Count 3.96 X10*6/uL (4.20-5.50); White Blood Count 4.5 X10*3/uL (4.8-10.8)
[2025-08-10 14:32] LABS: Appearance Urine Clear; Glucose Urine UA Negative (Negative); PH 6.0 (5.0-9.0); Specific Gravity - Urine 1.015 (1.005-1.025)
[2025-08-10 14:54] LABS: Alanine Aminotransferase 13 U/L (0-31); Albumin Level 4.7 g/dL (3.5-5.0); Alkaline Phosphatase 55 U/L (39-117); Anion Gap 12 (12-20); Aspartate Amino Transferase 21 U/L (5-31); Blood Urea Nitrogen 7 mg/dL (9-16); Calcium 9.4 mg/dL (8.4-10.2); Carbon Dioxide 26 mmol/L (22-29); Chloride 106 mmol/L (96-108); Estimated Glomerular Filt Rate > 60; Potassium 4.0 mmol/L (3.3-5.1); Sodium 140 mmol/L (135-145); Total Protein 7.3 g/dL (6.5-8.0)
[2025-08-11 15:54] LABS: Anti Nuclear Antibody Screen POSITIVE (NEGATIVE); Anti Nuclear Antibody Titer 1:80 titer
[2025-08-11 17:58] LABS: Transglutaminase Ab IgG <1.0 U/mL
== END 2025-08-10 10:16 | disposition home or self-care (01) ==
LOC: HO.XRAY 10:15
DX: F32.81 Premenstrual dysphoric disorder (principal); Z34.90 Encounter for supervision of normal pregnancy, unspecified, unspecified trimester; M25.50 Pain in unspecified joint; M54.2 Cervicalgia; R53.83 Other fatigue; R55 Syncope and collapse; R42 Dizziness and giddiness; K59.00 Constipation, unspecified; R14.0 Abdominal distension (gaseous); E55.9 Vitamin D deficiency, unspecified; G43.109 Migraine with aura, not intractable, without status migrainosus
CPT/HCPCS: 36415; 72040; 80053; 81003; 84443; 84702; 85025; 85652; 86038; 86039; 86141; 86364; 96127

== ENCOUNTER → 2025-08-10 12:55 | Outpatient (BNV) | payer BC, SELFPAY | PROVIDERS: Visit Provider Radiology Diagnostic Radiology | DX: M54.2 Cervicalgia (principal) | CPT/HCPCS: 72040 ==

== ENCOUNTER 2025-09-21 11:01 | Outpatient (REF) | payer BC, SELFPAY ==
--- NOTE | ~2025-09-21 | XR_ITS ---
EXAMINATION: XR ABDOMEN COMPLETE CLINICAL INDICATION: R10.31 - Right lower quadrant pain COMPARISON: Correlated to CT dated October 15, 2017. TECHNIQUE: AP views in upright and semiupright position. of the abdomen. FINDINGS: Gas throughout the nondilated intestine. Stool within nondilated intestine. No air-fluid levels. No free air beneath the diaphragm. The upright view excludes the right lower hemithorax and right hemidiaphragm. XR/XR abdomen min 2V IMPRESSION: No intestinal obstruction pattern. Electronically signed by: Peter Espana MD 09/21/2025 01:15 PM EDUARDO WOOD
[2025-09-21 12:35] LABS: Appearance Urine Clear; Glucose Urine UA Negative (Negative); PH 6.5 (5.0-9.0); Specific Gravity - Urine 1.010 (1.005-1.025)
--- OUTSIDE RECORDS SUMMARY | 2025-09-21 14:52 | XMS_ITS | Clinical Summary ---
Author Organization [facility] Address [address] [place] [address] Phone Care Team Providers Care Ornamental Bronze Worker Name Role Phone Sylvia Rose MD Primary Care Provider [phone] Allergies Active Allergy Reactions Criticality Noted Date [...] Type Department Care Team Description 08/06/2025 Telephone [facility] [address] [facility] [address] [place] [address] Erwin Marquez MD from Last 3 Months Immunizations Immunization Administration Dates Next Due DTP 1996,1996,1996 DTaP (Infanrix) 6wks to less than 7yo ,07/26/1997,1996,05/13,1996 DTaP 5 pertussis antigens, D iptheria Tetanus acellular pertussis (Daptacel) 6wks to less than 7yo 03/11/2000,07/26/1997 DTaP, Unspecified 03/11/2000, 7,1996,05/13,1996 [id number]-[id number]-[id number] (Pentacel) 2mo to less than 5yo 04/02/1997,1996,1996,03/16 HPV, Quadrivalent 08/31/2008,04/29/2008,02/23/20 08 HPV, Unspecified 08/31/2008,04/29/2008, 8 Hepatitis B (Kgiqpio-Y-Pjrxu , Recombivax HB-Adult) 19yo and older 1996,1996,1996 [...] Surgery Date Site/Laterality Comments ESOPHAGOGASTRODUODENOSCOPY 05/31/2017 PROCEDURE: OK ESOPHAGOGASTRODUODENOSCOPY TRANSORAL DIAGNOSTIC; COMMENT: normal Medical History [...] care for your loved ones. For example, child care coordinator or elderly care for an older adult? [...] Date Recorded What is your living situation? Unrecognized valu e 11/05/2024 Comments No Sex and Gender Information Value [...] RESULTING AGENCY - 02/18/2023 6:31 AM EDT [id number] THINPREP PAP, IMAGED: NEGATIVE FOR SQUAMOUS INTRAEPITHELIAL LESION AND MALIGNANCY . ABBI OWENS(ASCP) (CASE ELECTRONICALLY SIGNED 02 16 2023) ADEQUACY: SATISFACTORY ENDOCERVICAL/TRANSFORMATION ZONE COMPONENT PRESENT. SOURCE: THINPREP PAP HPV IF ASCUS, CERVICAL, IMAGED CLINICAL INFORMATION: HPV IF DIAGNOSIS OF ASCUS. HORMONES, PAP HX NEGATIVE, [Z01.419] Jane Parks CNM LAB CYTOLOGY ORDERABLES Final Result HISTORICAL TESTING LAB RESULTING AGENCY * Gonorrhea/Chlamydia Screening (07/27/2021) HM Gonorrhea/Chla mydia Screening abstracted Historical Provider HEALTH MAINTENANCE Final Result from Last 3 Months or Most Recently Relevant to Health Maintenance Insurance [facility] Care Teams Ornamental Bronze Worker Relationship Specialty Start Date End Date Sylvia Rose MD [address] [place] [address] [place] [address] PCP - General 08/06/24
--- OUTSIDE RECORDS SUMMARY | 2025-09-21 14:52 | XMS_ITS | Clinical Summary ---
Author Organization [facility] Address [address] [place] [phone] Phone Care Team Providers Care Sales Marketing Name Role Phone Zara Roberts NP Primary [...] 08/01/2012, 01/05/2011, Additional history exists COVID-19 Vaccine (2024- season) 2025 Hepatitis B Vaccines Completed 1996, [...] age to complete this topic Care Teams Sales Marketing Relationship Specialty Start Date End Date Zara Roberts NP PCP - General 06/28/17
--- OUTSIDE RECORDS SUMMARY | 2025-09-21 14:52 | XMS_ITS | Encounter Summary ---
Author Organization [facility] Address [address] [place] [address] Phone Care Team Providers Care Traffic Control Technician Name Role Phone Zara Roberts PEA VINER MECHANIC Primary Care Provider Un available Encounter Details Date Type Department Care Team (Late st Contact Info) Description 11/26/2011 Documentation EM Family Medicine [address] [place] [address] Family Medicine, Physician [address] [place], [place] [id number] Social History Tobacco Use Types Packs/Day Years [...] on filedocumented in this encounter Care Teams Traffic Control Technician Relationship Specialty Start Date End Date Zara Roberts NP PCP - General 06/28/17 documented as of this encounter
--- OUTSIDE RECORDS SUMMARY | 2025-09-21 14:52 | XMS_ITS | Encounter Summary ---
Author Organization [facility] Address [address] [place] [phone] Phone Care Team Providers Care Revenue Integrity Analyst Name Role Phone Zara Roberts MARKETING ANALYST Primary Care Provider Un available Encounter Details Date Type Department Care Team (Late st Contact Info) Description 07/04/2017 Conversion Encounter [facility] - [address] [address] Social History Tobacco Use Types Packs/Day Years [...] on filedocumented in this encounter Care Teams Revenue Integrity Analyst Relationship Specialty Start Date End Date Zara Roberts NP PCP - General 06/28/17 documented as of this encounter
--- OUTSIDE RECORDS SUMMARY | 2025-09-21 14:52 | XMS_ITS | Clinical Summary ---
Author Organization [facility] Address [address] [place] [address] Care Team Providers Care Safety And Health Manager Name Role Phone Fernando Acosta Primary Care Provider [phone] Allergies Active Allergy Reactions Criticality Noted Date [...] mL subcutaneous injectionIndicati ons:Hereditary angioedema type 3 Inject 30mg (3mL) under the skin injected [...] Care Team (Late st Contact Info) Description 09/24/2025 2:00 PM EST Office Visit [facility] [address] [place] [address] Locator Specialist: Leroy Whitt MD [address] [place] [phone] 10/28/2025 9:40 AM EST Follow-Up [facility] [address] [place] [phone] Locator Specialist: Real Alvarez MD [address] [place] [phone] Health Maintenance Due Date Last Done Comments [...] 09/12/2031 09/12/2021, 02/17/2007, 03/11/2000, Additional history exists Hepatitis B Vaccines Completed 1996, 1996, 1996 Varicella Vaccines Completed 07/05/2010, 04/10/1999 Insurance HSNO/FREE CARE Care Teams Safety And Health Manager Relationship Specialty Start Date End Date Fernando Acosta PA [address] [place] [address] PCP - General 08/27/25
== END 2025-09-21 11:02 | disposition home or self-care (01) ==
LOC: HO.XRAY 11:01
DX: F32.81 Premenstrual dysphoric disorder (principal); F41.1 Generalized anxiety disorder; F90.0 Attention-deficit hyperactivity disorder, predominantly inattentive type; F39 Unspecified mood [affective] disorder; R10.31 Right lower quadrant pain; R10.9 Unspecified abdominal pain
CPT/HCPCS: 74019; 81003; 90792

== ENCOUNTER 2025-09-21 11:01 | Outpatient (AMB) | payer BC, SELFPAY ==
[2025-09-21 11:12] VITALS: BP 118/68; PULSE 90; RESP 18; TEMP 36.6; O2SAT 99; BMI 27.2
--- NOTE | 2025-09-21 11:12 | MHC.PC.OV ---
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 Accompanied by: Self / Same As Patient Allergies amoxicillin (AMOXICILLIN) Allergy (Unknown, Verified 09/21/25 11:30) STOMACH UPSET Sulfa (Sulfonamide Antibiotics) Adverse Reaction (Verified 09/21/25 11:30) hives Medication List - Last Reconciled 09/21/25 by JOAQUIN Farooq albuterol sulfate 90 mcg/actuation (Ventolin HFA) 1 inh inhalation QID cholecalciferol (vitamin D3) 50 mcg PO DAILY icatibant 30 mg subcut Q6H magnesium oxide 400 mg PO BEDTIME metformin ER (Glucophage XR) 500 mg PO DAILY riboflavin (vitamin B2) 400 mg PO DAILY Tobacco use date assessed: 09/21/25 Dental Screening Dental Screen Date: 09/21/25 Did you have a dental visit in the last 12 months?: Yes Did you have a dental problem in the last 6 months where you did not have access to dental care?: No Was dental information given to patient?: Patient has dentist HPI PHYSICAL HPI Details Patient is presenting for annual physical exam Recent labs and imagings-reviewed via portal and was discussed today as well Dentist: Up-to-date Eye: Up-to-date Snellen: Right: Left: Corrected vision:no STI screening:n/a Colonoscopy:n/a Pap Smer: Up-to-date ([facility]) PHQ-9: Flu: has not done this recently COVID:x2 Tdap: 2020 Diet: Regular Exercise: Not lately Reports abdominal pain in the right lower quadrant Reports appointment with rheumatology on Saturday. Leroy Marin MD will be seeing the psychiatristaft this appt Reports right flanks pain for 3 weeks PFSH Medical History Migraines Asthma History of PCOS Hereditary angioedema type 3 Family History Father Asperger's disorder Brother Asperger's disorder Social History Household Members: Spouse Housing: House Alcohol intake: current Patient Tobacco Use Status: Never used Tobacco e-Cigarette/Vaping Use: Never Used Current occupational status: employed Current occupation: [employer] Cognitive needs: No Hearing needs: No Vision needs: Yes Questionnaire Thrive Questionnaire Date Thrive assessed: 08/10/25 I am a: Patient What is your living situation today?: I have a steady place to live Within the past 12 months, did the food you bought not last and you didn't have the money to get more?: Never true Within the past 12 months, did you worry whether your food would run out before you got money to buy more?: Never true Do you have trouble paying for medicines?: No Do you have trouble getting transportation to medical appointments?: No Do you have trouble paying your heating and electricity bill?: No Do you have trouble taking care of your child, family member or friend?: No Do you have trouble with day-to-day activities such as bathing, preparing meals, shopping, managing finances, etc.?: No Are you currently unemployed and looking for a job?: No Are you interested in more education?: No Please select the resources that you would like help with: None Currently or been in a relationship where the following occur: No concerns reported THRIVE Score: 0 JUDY-7 AMB Questionnaire JUDY-7 Date JUDY - 7 assessed: 08/10/25 Source: Developed by Drs. Kavon Hernandez, Flor Dillard, Raj Figueroa and colleagues, with an educational eve from [employer]. Review of Systems Const Reports fatigue and Reports headache(s) (Migraines) Eyes Denies loss of vision ENT Reports vertigo, Denies dizziness, Reports headache(s) (Migraines), Reports neck pain, Reports tinnitus (Left ear) and Denies sore throat Card Denies chest pain, Reports syncope, Reports rapid heart rate (Intermittently), Denies leg edema and Denies lightheadedness Resp Denies cough, Denies hemoptysis and Denies wheezing GI Reports abdominal pain (Right lower quadrant), Denies melena, Reports bloating, Reports constipation, Reports GI cramping, Reports excessive flatus, Denies diarrhea and Denies vomiting Denies urinary frequency, Denies dysuria and Denies urinary urgency Musc Reports arthralgias (Knees, hips, ankles), Denies joint swelling, Reports neck pain, Denies numbness and Denies tingling Neuro Denies Abnormal speech present, Denies behavioral changes, Reports vertigo, Denies dizziness, Reports syncope, Reports headache(s) (Migraines), Denies loss of vision, Denies memory loss, Denies numbness and Denies tingling Psych Denies anxiety, Denies behavioral changes, Reports depression (Associated with menstrual periods), Denies memory loss, Denies panic attacks and Reports suicidal ideation Endo Reports fatigue Abdulaziz/Lymph Denies easy bleeding and Denies easy bruising Aller/Immun Denies wheezing Physical exam (Primary Care) Vital Signs: Last Vital Signs Temp 98 F 09/21/25 11:12 Pulse 90 09/21/25 11:12 Resp 18 09/21/25 11:12 BP 118/68 09/21/25 11:12 Pulse Ox 99 09/21/25 11:12 Oxygen Delivery Method Room Air 09/21/25 11:12 BMI result Body Mass Index 27.2 Tobacco/Smoking Status: Tobacco use Status Tobacco use date assessed 09/21/25 09/21/25 11:18 Patient Tobacco Use Status Never used Tobacco 09/21/25 11:18 e-Cigarette/Vaping Use Never Used 09/21/25 11:18 Thrive Assessment: Date of Thrive Assessment Date Thrive assessed 08/10/25 09/21/25 11:18 Currently or been in a relationship where the following occur: No concerns reported Const General: healthy appearing, no acute distress, alert and awake Nutritional Appearance: well nourished Orientation/consciousness: oriented to person, oriented to place and oriented to time HENMT Ears: TM's normal bilaterally General nose exam: Normal nasal mucous membranes and turbinates present Eyes Conjunctivae: conjunctivae normal Sclerae: sclerae normal Pupils: Equal, round and reactive pupils present Neck Neck: Yes no lymphadenopathy and Yes no JVD Thyroid: Thyroid normal Carotids: no bruits Resp Effort & Inspection: normal respiratory effort and not tachypneic Auscultation: no crackles, no rales, no rhonchi and no wheezes Cardio Rate: regular rate Rhythm: regular rhythm Heart sounds: no murmurs and normal S1 and S2 GI Palpation (GI): Soft to palpation, nontender, no hepatomegaly and no splenomegaly Auscultation: normal bowel sounds General: Yes no CVA tenderness Back/Spine/Pelvis Back: no CVA tenderness Thoracic/Lumbar Spine: No lumbar spinal tenderness Skin General skin exam: no rashes or lesions noted and dry skin Neuro General: oriented to person, oriented to place and oriented to time Cranial nerves: Yes CN's II-XII intact bilaterally and Yes Equal, round and reactive pupils present Speech: No Abnormal speech present Gait exam (Neuro): Normal gait present Motor exam (neuro): 5/5 motor strength present throughout and no tremor noted Deep tendon reflexes (DTR's): Right triceps reflex intensity grade: 2+, Left triceps reflex intensity grade: 2+, Rt Biceps (C5, C6): 2+, Left biceps reflex intensity grade: 2+, Right brachioradialis reflex intensity grade: 2+, Left brachioradialis reflex intensity grade: 2+, Right patellar reflex intensity grade: 2+ and Left patellar reflex intensity grade: 2+ Extrem Right upper extremity: full ROM Left upper extremity: full ROM Right lower extremity: full ROM; no edema Left lower extremity: full ROM; no edema Psych Mental Status: mental status grossly normal Speech and movement: Normal speech and movement present Affect: normal affect Attitude: cooperative Thought process: Normal thought process present Results Reviewed Results Reviewed: Laboratory Tests 08/10/25 08/10/25 12:40 12:42 WBC 4.5 L RBC 3.96 L Hgb 12.3 Hct 37.1 MCV 93.7 MCH 31.1 MCHC 33.2 RDW 12.5 Plt Count 283 MPV 11.1 Sodium 140 Potassium 4.0 Chloride 106 Carbon Dioxide 26 Anion Gap 12 BUN 7 L Creatinine 0.73 Estimated GFR > 60 Fasting Glucose 99 Calcium 9.4 Total Bilirubin 0.5 AST 21 ALT 13 Alkaline Phosphatase 55 C-React Prot High Sens 0.5 Total Protein 7.3 Albumin 4.7 TSH 1.12 Beta HCG, Quant < 2 Urine Color Yellow Urine Appearance Clear Urine pH 6.0 Ur Specific [place] 1.015 Urine Protein Negative Urine Glucose (UA) Negative Urine Ketones Negative Urine Blood Negative Urine Nitrite Negative Ur Leukocyte Esterase Negative TEJINDER Screen POSITIVE A TEJINDER Titer 1:80 H TEJINDER Titer 2 TNP TEJINDER Titer 3 TNP TEJINDER Pattern A TEJINDER Pattern 2 TNP TEJINDER Pattern 3 TNP Tiss Transglutamin IgG <1.0 Coding Level of Care Code Est Pt Prev Care [id number]) Diagnoses Annual physical exam Z00.00 PMDD (premenstrual dysphoric disorder) F32.81 Multiple joint pain M25.50 Neck pain M54.2 Fatigue, unspecified type R53.83 Fatigue type: unspecified Syncope and collapse R55 Vertigo R42 Constipation, unspecified constipation type K59.00 Constipation type: unspecified constipation type Bloating R14.0 Vitamin D deficiency E55.9 Migraine with aura and without status migrainosus, not intractable G43.109 Intractability: not intractable Migraine type: migraine (< 15 days per month) with aura Status migrainosus presence: without status migrainosus Time Spent (min) 35 Assessment & Plan Assessment & Plan (1) Annual physical exam: Code(s): Z00.00 - Encounter for general adult medical examination without abnormal findings Category: Medical Plan: Preventative guidelines and recent labs reviewed with the patient. (2) PMDD (premenstrual dysphoric disorder): Code(s): F32.81 - Premenstrual dysphoric disorder Category: Medical Plan: The patient reports SI tj-menstrual, reports that she was tried on Lexapro and BuSpar with negative effects. The patient reports that she we will never hurt herself but she gets the feeling of hurting herself close to her periods. The patient also reports migraines with aura, so she would not be a good candidate for a combination contraceptive. Psychiatry referral placed. The patient was also urge to address this with OBGYN as well. (3) Multiple joint pain: Code(s): M25.50 - Pain in unspecified joint Category: Medical Plan: Patient reports multiple joint pains, reports knees, ankles, and hips. Low positive TEJINDER on labs. Negative for Lyme disease. No edema or erythema to joints. She was recently referred to [facility] rheumatology. She has an appointment for early next year. Reports today that she has an appointment on this Saturday with [facility] rheumatology, Leroy Da Silva MD. (4) Neck pain: Code(s): M54.2 - Cervicalgia Category: Medical Plan: This reports neck pain that she has been working with a chiropractor with to get some relief. Per patient, her chiropractor reports that she has compression in her neck area. Cervical spine x-ray on 08/10/2025. Shows straightening of the expected cervical lordosis. Could be idiopathic, but can also be related to muscle spasm or posterior soft tissue injury. Patient reports that she will continue to see her chiropractor because this has been working. (5) Fatigue: Code(s): R53.83 - Other fatigue Category: Medical Qualifiers: Fatigue type: unspecified Qualified Code(s): R53.83 - Other fatigue Plan: Most the patient labs has been unremarkable. She does have a low positive TEJINDER. RBC slightly below low normal level, less likely the reason for the patient tiredness. She has an appointment with rheumatology on saturday and one with psychiatry after this appointment. Will continue to monitor. (6) Syncope and collapse: Code(s): R55 - Syncope and collapse Category: Medical Plan: Patient reports that she was having recurrent syncope episodes. She had an MRI completed on 02/04/2025 that showed no acute findings. She was also evaluated by Dr. Gaona (neurology) that told her this is primarily related to anxiety and prescribed her propranolol that she has not tried, per patient. She is requesting to be referred another neurologist. Referral was placed. (7) Vertigo: Code(s): R42 - Dizziness and giddiness Category: Medical Plan: Patient reports vertigo especially in certain position. Intermittent ringing in the left ear. On exam, bilateral ears canal and TM are normal-appearing. PT referral for vestibular therapy recommended, but the patient refused. (8) Constipation: Code(s): K59.00 - Constipation, unspecified Category: Medical Qualifiers: Constipation type: unspecified constipation type Qualified Code(s): K59.00 - Constipation, unspecified Plan: Reports ongoing constipation and bloating. Abdominal ultrasound on 09/21/2025 showed gas throughout the nondilated intestine. Stool within nondilated intestine. No air-fluid levels. No free air beneath the diaphragm. No intestinal obstruction pattern noted. Encouraged the patient to increase dietary fiber and fluids. FODMAP diet was discussed in detail. (9) Bloating: Code(s): R14.0 - Abdominal distension (gaseous) Category: Medical Plan: X-ray of the abdomen ordered. Patient has not started FODMAP diet, GI referral was placed to further evaluate. (10) Vitamin D deficiency: Code(s): E55.9 - Vitamin D deficiency, unspecified Category: Medical Plan: Continue cholecalciferol 50 mcg daily (11) Migraines: Code(s): G43.909 - Migraine, unspecified, not intractable, without status migrainosus Category: Medical Qualifiers: Intractability: not intractable Migraine type: migraine (< 15 days per month) with aura Status migrainosus presence: without status migrainosus Qualified Code(s): G43.109 - Migraine with aura, not intractable, without status migrainosus Plan: Patient reports migraines with aura that starts in her left eye has pressure then result with her being unable to see out of her left eye. Reports that she only gets 3 serious ones a year that could last for a whole week. She had vomited once during 1 of these attacks. Magnesium oxide 400 mg at HS, vitamin B2 400 mg daily were ordered. A neurology referral was placed AND she has an upcoming appointment. Orders: Orders XR abdomen min 2V 09/21/25 R10.31 - Right lower quadrant pain Complete Blood Count Auto Diff 1 Year F32.81 - Premenstrual dysphoric disorder, G43.109 - Migraine with aura, not intractable, without status migrainosus, K59.00 - Constipation, unspecified, M25.50 - Pain in unspecified joint, R53.83 - Other fatigue, R76.89 - Other specified abnormal immunological findings in serum, Z00.00 - Encounter for general adult medical examination without abnormal findings Comprehensive [place]. Panel Fast 1 Year F32.81 - Premenstrual dysphoric disorder, G43.109 - Migraine with aura, not intractable, without status migrainosus, K59.00 - Constipation, unspecified, M25.50 - Pain in unspecified joint, R53.83 - Other fatigue, R76.89 - Other specified abnormal immunological findings in serum, Z00.00 - Encounter for general adult medical examination without abnormal findings Lipid Panel 1 Year F32.81 - Premenstrual dysphoric disorder, G43.109 - Migraine with aura, not intractable, without status migrainosus, K59.00 - Constipation, unspecified, M25.50 - Pain in unspecified joint, R53.83 - Other fatigue, R76.89 - Other specified abnormal immunological findings in serum, Z00.00 - Encounter for general adult medical examination without abnormal findings TSH reflex Free T4 1 Year F32.81 - Premenstrual dysphoric disorder, G43.109 - Migraine with aura, not intractable, without status migrainosus, K59.00 - Constipation, unspecified, M25.50 - Pain in unspecified joint, R53.83 - Other fatigue, R76.89 - Other specified abnormal immunological findings in serum, Z00.00 - Encounter for general adult medical examination without abnormal findings UA CC w/rflx Micro + Cult 1 Year F32.81 - Premenstrual dysphoric disorder, G43.109 - Migraine with aura, not intractable, without status migrainosus, K59.00 - Constipation, unspecified, M25.50 - Pain in unspecified joint, R53.83 - Other fatigue, R76.89 - Other specified abnormal immunological findings in serum, Z00.00 - Encounter for general adult medical examination without abnormal findings Vitamin D 25-OH Total 1 Year F32.81 - Premenstrual dysphoric disorder, G43.109 - Migraine with aura, not intractable, without status migrainosus, K59.00 - Constipation, unspecified, M25.50 - Pain in unspecified joint, R53.83 - Other fatigue, R76.89 - Other specified abnormal immunological findings in serum, Z00.00 - Encounter for general adult medical examination without abnormal findings UA CC w/rflx Micro + Cult 09/21/25 R10.9 - Unspecified abdominal pain
== END 2025-09-21 12:42 | disposition home or self-care (01) ==
LOC: HO.HMCH 11:01
DX: Z00.00 Encounter for general adult medical examination without abnormal findings (principal); F32.81 Premenstrual dysphoric disorder; M25.50 Pain in unspecified joint; M54.2 Cervicalgia; R53.83 Other fatigue; R55 Syncope and collapse; R42 Dizziness and giddiness; K59.00 Constipation, unspecified; R14.0 Abdominal distension (gaseous); E55.9 Vitamin D deficiency, unspecified; G43.109 Migraine with aura, not intractable, without status migrainosus

== ENCOUNTER → 2025-09-21 12:26 | Outpatient (BNV) | payer BC, SELFPAY | PROVIDERS: Visit Provider Radiology Diagnostic Radiology | DX: R10.31 Right lower quadrant pain (principal) | CPT/HCPCS: 74019 ==

== ENCOUNTER 2025-09-21 13:19 | Outpatient (AMB) | payer BC, SELFPAY ==
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
== END 2025-09-21 15:02 | disposition home or self-care (01) ==
LOC: HO.HOP 13:19
PROVIDERS: Visit Provider Clinical Nurse Specialist Psychiatric/Mental Health
DX: F39 Unspecified mood [affective] disorder (principal); F32.81 Premenstrual dysphoric disorder; F41.1 Generalized anxiety disorder; F90.0 Attention-deficit hyperactivity disorder, predominantly inattentive type
CPT/HCPCS: 90792

== ENCOUNTER 2025-11-02 12:58 | Outpatient (AMB) | payer BC, SELFPAY ==
--- OUTSIDE RECORDS SUMMARY | 2025-10-28 09:40 | XMS_ITS | Encounter Summary ---
Author Organization [facility] Address [address] [place] [address] Care Team Providers Care Equipment Detailer Name Role Phone Fernando Acosta Primary Care Provider Reason for Visit * Consultation (Routine) - Authorized Specialty Diagnoses / Procedures Referred By Servando ramos Referred To Contact Pulmonary Diagnoses hereditary angioedema, type 3 [facility] [address] [place] [address] Phone: tel: fax: Referral ID Status Reason Start Date Expiration Date V isits Requested Visits Authorized [id number] Authorized 10/20/2024 04/21/2026 6 6 Encounter Details Date Type Department Care Team (Late st Contact Info) Description 10/28/2025 9:40 AM EST Telehealth [facility] [address] [place] [address] Rent Collector: Real Alvarez MD [address] [place] [phone] Hereditary angioedema type 3 (Primary Dx) Social History Tobacco Use Types Packs/Day Years Used Date Smoking Tobacco: Never Smokeless Tobacco: Never Comments Unknown Sex and Gender Information Value Date Recorded Sex Assigned at Female 11/27/2021 10:52 PM EST Legal Sex Female 10:01 AM EST Gender Identity Female 11/27/2021 10:52 PM EST Sexual Orientation Bisexual 11/27/2021 10 :52 PM EST documented as of this encounter Progress Notes * Real Morris MD - 10/28/2025 10:06 AM EST Clinic note - Telehealth 10/28/2025 PROBLEM LIST: 1. Type III hereditary angioedema: Strong family history, mother has confirmed diagnosis, triggers include emotional stress and menstruation. Symptoms include abdominal wall swelling, genital swelling, facial angioedema, mild airway symptoms (hoarseness, change in voice, throat paresthesias). No tata airway attacks thus far. No abdominal pain. 2. Asthma: Mild, be managed by an outside environmental monitoring technician. HISTORY OF PRESENT ILLNESS: Ms. Palma had a telehealth visit today to follow up on type III hereditary angioedema.This is a 1 year follow-up. When I saw her last, symptoms had become milder, and were often related to menses. She only had to use her icatibant rescue once in the prior year. We discussed issues regarding management of her 3 angioedema in . She reports a couple of mild exacerbations, with mild throat and abdominal symptoms. Throat symptoms are mild, with a subtle change in voice and mild tightening,and abdominal bloating, usually before the onset of throat symptoms. She uses her rescue icaibant on these occasions with prompt relief. She has used icatibant 8 times over the past year. She feels that stress may have triggered some of these episodes. Overall, she feels that symptoms are brief andmild, and she is satisfied with her level of control. She does not want to go on a daily preventative medication. Current Outpatient Medications: albuterol (PROAIR HFA,VENTOLIN HFA) 90 mcg inhaler, Inhale 2 puffs (180 mcg total) by mouth every 4hours as needed for wheezing or shortness of breath. Use with spacer., Disp: 8.5 g, Rfl: 11 fluticasone propionate (FLONASE) 50 mcg/actuation nasal spray, Administer 1-2 sprays into each nostril once a day., Disp: , Rfl: ibuprofen (MOTRIN) 800 mg tablet, , Disp: , Rfl: icatibant (FIRAZYR) 30 mg/3 mL subcutaneous injection, Inject 30mg (3mL) under the skin injected into the abdominal area, and may repeat after 6 hours, maximum of 3 doses in a 24 hour period., Disp: 6 mL, Rfl: 11 lamoTRIgine (LaMICtal) 25 mg tablet, PLEASE SEE ATTACHED FOR DETAILED DIRECTIONS, Disp: , Rfl: magnesium oxide (MAG-OX) 400 mg (241.3 mg mag) tablet, SMARTSI Tablet(s) By Mouth Every Night (Patient not taking: Reported on 09/24/2025), Disp: , Rfl: metFORMIN ER (GLUCOPHAGE XR) 500 mg tablet, Take 1 tablet by mouth daily with breakfast., Disp: , Rfl: Vitamin D3 50 mcg (2,000 unit) capsule, SMARTSI Capsule(s) By Mouth Daily, Disp: , Rfl: SOCIAL HISTORY: reports that she has never smoked. She has never used smokeless tobacco. IMPRESSIONS: Hereditary angioedema type III: Still with mild symptoms with exacerbation, but occurring more frequently, which she attributes to significant increase in life stressors. She has very mild airway symptoms which respond promptly to therapy, so I agree if there is not an absolute indication for maintenance therapy at this point unless desired with respect to lifestyle, and she does not want this. Advised if she becomes she should contact me so we can develop a plan through and for labor and delivery. Also asked her to contact me if she has more significant airway symptoms, and any feeling that she has actual throat closing or trouble breathing. At that point, would need to reassess the indication for preventive therapy. RECOMMENDATIONS: Continue icatibant on an as-needed basis Advice regarding management of acute exacerbations and indications to reconsider parenteral therapyare as above 3. Follow-up with me in about 6 months, but contact me if she becomes I performed this visit using real-time telehealth tools, including a live audio video connection between my location ([place]) and the patient's location (their home). The patient requested/scheduled this visit. None Prior to beginning the telehealth visit, the patient's informed verbal consent to perform this visit using telehealth tools was obtained. I am comfortable that this visit could be performed effectively using telehealth tools. The patient's history and medical records were reviewed. I have informed the patient that in the case they felt that they needed to be seen in person, that an in person visit could be arranged. Outpt Video/Audio visit: Total time spent on same day: 35 minutes I have seen and evaluated Pat Palma and will be providing ongoing care and management for thesemedical conditions: Hereditary angioedema documented in this encounter Plan of Treatment Not on file documented as of this encounter Visit Diagnoses Diagnosis Hereditary angioedema type 3- Primary documented in this encounter Care Teams Equipment Detailer Relationship Specialty Start Date End Date Fernando Acosta PA [address] [place] [id number] PCP - General 08/27/25 documented as of this encounter
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
--- OUTSIDE RECORDS SUMMARY | 2025-11-02 16:52 | XMS_ITS | Encounter Summary ---
Author Organization [facility] Address [address] [place] [address] Care Team Providers Care Craft Coordinator Name Role Phone Fernando Acosta Primary Care Provider [phone] Encounter Details Date Type Department Care Team (Late st Contact Info) Description 10/04/2025 Results Follow-Up [facility] [address] [place] [address] Manager Hardware: Leroy Whitt MD [address] [place], [place] [id number] Social History Tobacco Use Types Packs/Day Years Used Date Smoking Tobacco: Never Smokeless Tobacco: Never Comments Unknown Sex and Gender Information Value Date Recorded Sex Assigned at Female 11/27/2021 10:52 PM EST Legal Sex Female 10:01 AM EST Gender Identity Female 11/27/2021 10:52 PM EST Sexual Orientation Bisexual 11/27/2021 10 :52 PM EST documented as of this encounter Miscellaneous Notes * Result Encounter Note - Leroy Da Silva MD - 10/04/2025 9:54 AM EST Amandeep Stewart, I think we have done a very thorough and comprehensive workup to look for lupus and there is nothing that comes up in the labs to support this diagnosis. I hope you can take this as the good news that it is. Thank you, -Dr. Da Silva documented in this encounter Plan of Treatment Not on file documented as of this encounter Visit Diagnoses Not on filedocumented in this encounter Care Teams Craft Coordinator Relationship Specialty Start Date End Date Fernando Acosta PA [address] [place], [place] [id number] PCP - General 08/27/25 documented as of this encounter
--- OUTSIDE RECORDS SUMMARY | 2025-11-02 16:52 | XMS_ITS | Clinical Summary ---
Author Organization [facility] Address [address] [place] [address] Phone Care Team Providers Care Executive Sales Manager Name Role Phone Sylvia Rose MD Primary Care Provider [phone] Allergies Active Allergy Reactions Criticality Noted Date [...] 08/04/2025 Anxiety 09/08/2024 COVID-19 09/08/2024 Hereditary angioedema 09/08/2024 Mild intermittent asthma 09/08/2024 Seasonal allergic rhinitis 09/08/2024 Encounters Date Type Department Care Team Description 08/06/2025 Telephone [facility] [address] [facility] [address] [place] [address] Erwin Marquez MD from Last 3 Months Immunizations Immunization Administration Dates Next Due DTP 1996,1996,1996 DTaP (Infanrix) 6wks to less than 7yo ,07/26/1997,1996,05/13,1996 DTaP 5 pertussis antigens, D iptheria Tetanus acellular pertussis (Daptacel) 6wks to less than 7yo 03/11/2000,07/26/1997 DTaP, Unspecified 03/11/2000, 7,1996,05/13,1996 WEvS-DIC-TRT (Pentacel) 2mo to less than 5yo 04/02/1997,1996,1996,03/16 HPV, Quadrivalent 08/31/2008,04/29/2008,02/23/20 08 HPV, Unspecified 08/31/2008,04/29/2008, 8 Hepatitis B (Yvsjzrm-R-Jpfsj , Recombivax HB-Adult) 19yo and older 1996,1996,1996 [...] Surgery Date Site/Laterality Comments ESOPHAGOGASTRODUODENOSCOPY 05/31/2017 PROCEDURE: NM ESOPHAGOGASTRODUODENOSCOPY TRANSORAL DIAGNOSTIC; COMMENT: normal Medical History [...] care for your loved ones. For example, childcare aide or elderly care for an older adult? [...] Cancer Screening: Pap Smear 02/06/2026 02/06/2023, 02/06/2023, 08/04/2020 Cholesterol Screening (Lipid Panel) 01/27/2029 01/28/2024 DTaP,Tdap,and [...] mg/dL Blood Venous blood specimen / Unknown us Historical Provider LAB BLOOD ORDERABLES Graciela l Result * Pap smear (02/06/2023) 02/06/2023 Narrative HISTORICAL TESTING LAB RESULTING AGENCY - 02/18/2023 6:31 AM EDT [id number] THINPREP PAP, IMAGED: NEGATIVE FOR SQUAMOUS INTRAEPITHELIAL [...] Most Recently Relevant to Health Maintenance Insurance [facility] Care Teams Executive Sales Manager Relationship Specialty Start Date End Date Sylvia Rose MD [address] [place] [place] [address] PCP - General 08/06/24
--- OUTSIDE RECORDS SUMMARY | 2025-11-02 16:52 | XMS_ITS | Clinical Summary ---
Author Organization [facility] Address [address] [place] [phone] Phone Care Team Providers Care Loadmaster Name Role Phone Zara Roberts NP Primary [...] age to complete this topic Care Teams Loadmaster Relationship Specialty Start Date End Date Zara Roberts NP PCP - General 06/28/17
--- OUTSIDE RECORDS SUMMARY | 2025-11-02 16:52 | XMS_ITS | Clinical Summary ---
Author Organization [facility] Address [address] [place] [address] Care Team Providers Care Supervisor [employer] Name Role Phone Fernando Acosta Primary Care Provider Allergies Active Allergy Reactions Criticality Noted Date [...] hour period. 6 mL 11 5 Active Vitamin D3 50 mcg (2,000 unit) capsule SMARTSI Capsule(s) By Mouth Daily 5 Active lamoTRIgine (LaMICtal) 25 mg tablet PLEASE SEE ATTACHED FOR DETAILED DIRECTIONS 5 Active magnesium oxide (MAG-OX) 400 mg (241.3 mg mag) tablet SMARTSI Tablet(s) By Mouth Every Night 5 Active metFORMIN ER (GLUCOPHAGE XR) 500 mg tablet Take 1 tablet by mouth daily with breakfast. 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 Asthma 11/28/2021 Encounters Date Type Department Care Team Description 10/28/2025 9:40 AM EST Telehealth [facility] [address] [place] [address] Special Library Librarian: Real Alvarez MD Hereditary angioedema type 3 (Primary Dx) 10/26/2025 Telephone [facility] [address] [address] Special Library Librarian: Sherry Cabrera MA 10/21/2025 CliniCast Message [facility] [address] [address] Special Library Librarian: Real Alvarez MD Appointment 10/28/25 10/04/2025 Results Follow-Up [facility] [address] [place] [address] Special Library Librarian: Leroy Whitt MD 09/24/2025 2:00 PM EST Office Visit [facility] [address] [place] [address] Special Library Librarian: Leroy Whitt MD Arthralgia of multiple joints (Primary Dx); Other fatigue; False positive tejinder; Rash 09/24/2025 CliniCast Message [facility] [address] [place] [address] Special Library Librarian: Real Alvarez MD Appointment question? from Last 3 Months Social History Tobacco Use Types Packs/Day Years [...] Sign Reading Time Taken Comments Blood Pressure 130/93 09/24/2025 1:47 PM EST Pulse 88 09/24/2025 1:47 PM EST Temperature - - Respiratory Rate 16 09/24/2025 1:47 PM EST Oxygen Saturation 97% 07/17/2022 10:00 AM EDT Inhaled Oxygen Concentration - - Weight 69.4 kg (153 lb) 09/24/2025 1:47 PM EST Height 165.1 cm (5' 5 ) 09/24/2025 1:47 PM EST Body Mass Index 25.46 09/24/2025 1:47 PM EST Plan of Treatment Health Maintenance Due Date Last Done Comments HIV Screening 1996 Hepatitis C Screening 1996 Pneumococcal Vaccine: Pediat alida (0-5 Years) and At-Risk Patients (6-50 Years) (1 of 2 - PCV) 2015 Alcohol/Substance Use Screening 11/18/2024 Depression Screening and Follow-Up 11/18/2024 Social Drivers of Health Linda ual Screening 11/18/2024 Influenza Vaccine (#1) 2025 , 02/26/2021, 09/09/2013, Additional history exists COVID-19 Vaccine (3 - 2024-2 6 season) 2025 03/20/2021, 02/26/2021 Pap Smear 02/06/2026 02/06/2023 DTaP,Tdap,and Td Vaccines (8 - Td or Tdap) 09/12/2031 09/12/2021, 02/17/2007, 03/11/2000, Additional history exists Hepatitis B Vaccines Completed 1996, 1996, 1996 Varicella Vaccines Completed 07/05/2010, 04/10/1999 Procedures * Due to [place] state law, this organization might not be sharing negative HIV tests. Procedure Name Priority Date/Time Associated Diagnosis Comments DRVVT SCREEN W/REFL DRVVT CONF AND DRVVT 1 TO 1 [id number] Routine 09/27/2025 2:25 PM EST RHEUMATOID FACTOR Routine 09/27/2025 2:2 5 PM EST Arthralgia of multiple joints Other fatigue False positive tejinder Rash CYCLIC CITRULLLNATED PEPTIDE (CCP) ANTIBODY, IGG Routine 09/27/2025 2:25 PM EST Arthralgia of multiple joints Other fatigue False positive tejinder Rash TEJINDER SPECIFIC ANTIBODY Routine 09/27/2025 2:25 PM EST Arthralgia of multiple joints Other fatigue False positive tejinder Rash RPR (MONITOR) W/REFLEX TO TITER Routine 09/27/2025 2:25 PM EST Arthralgia of multiple joints Other fatigue False positive tejinder Rash PTT Routine 09/27/2025 2:25 PM EST Arthralgia of multiple joints Other fatigue False positive tejinder Rash CARDIOLIPIN ANTIBODIES, IGG/IGM/IGA Routine 09/27/2025 2:25 PM EST Arthralgia of multiple joints Other fatigue False positive tejinder Rash [id number] I ANTIBODIES, IGG/IGA/IGM Routine 09/27/2025 2:25 PM EST Arthralgia of multiple joints Other fatigue False positive tejinder Rash DNA ANTIBODY, DOUBLE-STRANDED Routine 09/27/2025 2:25 PM EST Arthralgia of multiple joints Other fatigue False positive tejinder Rash COMPLEMENT C3 Routine 09/27/2025 2:25 PM EST Arthralgia of multiple joints Other fatigue False positive tejinder Rash COMPLEMENT C4 Routine 09/27/2025 2:25 PM EST Arthralgia of multiple joints Other fatigue False positive tejinder Rash PHOSPHATIDYLSERINE PROTHROMBIN -[id number] Routine 09/24/2025 3:21 PM EST Arthralgia of multiple joints Other fatigue False positive tejinder Rash DIRECT ANTIGLOBULIN TEST Routine 025 3:21 PM EST Arthralgia of multiple joints Other fatigue False positive tejinder Rash AMB EXTERNAL XR ABDOMEN, OUTSIDE RESULT 09/21/2025 LAB - SCANNED 09/21/2025 AMB EXTERNAL XR C-SPINE, OUTSIDE RESULT 08/10/2025 LAB - SCANNED 08/10/2025 from Last 3 Months Results * Due to [place] state law, this organization might not be sharing negative HIV tests. * DVVT Screen w/reflex DRVVT confirmation and DRVVT 1:1 Mix (09/27/2025 2:25 PM EST) DRVVT Screen 29 <=45 sec 10/01/2025 10:11 PM EST [facility] 09/27/2025 2:25 PM EST 09/29/2025 4:22 PM EST Narrative [facility] - 10/01/2025 10:13 PM EST FASTING:NO us Leroy Da Silva MD LAB BLOOD ORDERABLES Final Resul t [facility] [address] [facility] 3rd Floor, [place] [address], [place] [phone] [employer] [facility] [id number] [place] [address] * Cardiolipin Antibodies, IgG/IgM/IgA (09/27/2025 2:25 PM EST) Cardiolipin Ab IgA <2.0 APL-U/mL 2024 2:56 PM EST [employer] [facility] Comment: Value Interpretation ----- < 20.0 Antibody not detected > or = 20.0 Antibody detected Cardiolipin Ab IgG <2.0 GPL-U/mL 2024 2:56 PM EST [employer] [facility] Comment: Value Interpretation ----- < 20.0 Antibody not detected > or = 20.0 Antibody detected Cardiolipin Ab IgM <2.0 MPL-U/mL 2024 2:56 PM EST [employer] [facility] Comment: Value Interpretation ----- < 20.0 Antibody not detected > or = 20.0 Antibody detected The antiphospholipid antibody syndrome (APS) is a clinical-pathologic correlation that includes a clinical event (e.g. arterial or venous thrombosis, morbidity) and persistent positive antiphospholipid antibodies (IgM, IgG Cardiolipin or b2GPI antibodies greater than the 99th percentile; or a lupus anticoagulant). International consensus guidelines for APS suggest waiting at least 12 weeks before retesting to confirm antibody persistence. The Systemic Lupus International Collaborating Clinics immunological classification criteria for systemic lupus erythematosus (SLE) include testing for isotype IgA, which has yet to be incorporated into APS criteria. Low level antiphospholipid antibodies may sometimes be detected in the setting of infection, drug therapy or aging. For additional information, please refer to http://education.Prepared Response/faq/RSW878 (This link is being provided for informational/ educational purposes only.) Blood Structure of peripheral vein / Unknown 09/27/2025 2:25 PM EST 09/28/2025 4:57 AM EST Narrative [facility] - 10/01/2025 10:13 PM EST FASTING:NO us Leroy Da Silva MD LAB BLOOD ORDERABLES Final Resul t [facility] [address] [facility] [address], [place] [address], [place] [phone] [employer] [facility] [address] [place] [address] * RPR (Monitor) w/Reflex to Titer (09/27/2025 2:25 PM EST) RPR W/Refl Titer NON-REACT DEBORAH NON-REACT DEBORAH 09/28/2025 1:44 PM EST [employer] [facility] Blood Structure of peripheral vein / Unknown 09/27/2025 2:25 PM EST 09/28/2025 5:17 AM EST Narrative [facility] - 10/01/2025 10:13 PM EST FASTING:NO us Leroy Da Silva MD LAB BLOOD ORDERABLES Final Resul t Performing Organization Address City/[facility]/ZIP Co de Phone Number [facility] [address], [place] [address], [place] [phone] [employer] [facility] [address] [place] [address] * Cyclic Citrullinated Peptide (CCP) Antibody, IgG (09/27/2025 2:25 PM EST) Cyclic Citrullinated Peptide (CCP) Ab (IgG) <16 UNITS 09/30/2025 6:54 PM EST [employer] [facility] Comment: Reference Range Negative: <20 Weak Positive: 20-39 Moderate Positive: 40-59 Strong Positive: >59 Blood Structure of peripheral vein / Unknown 09/27/2025 2:25 PM EST 09/28/2025 5:17 AM EST Narrative [facility] - 10/01/2025 10:13 PM EST FASTING:NO us Leroy Da Silva MD LAB BLOOD ORDERABLES Final Resul t Performing Organization Address [facility]/ZIP Co de Phone Number [facility] [address], [place] [address], [place] [phone] [employer] [facility] [address] [place] [address] * DNA Antibody, Double-Stranded (09/27/2025 2:25 PM EST) DNA (Ds) Antibody <1 IU/mL 025 8:42 PM EST [employer] [facility] Comment: IU/mL Interpretation < or = 4 Negative 5-9 Indeterminate > or = 10 Positive Blood Structure of peripheral vein / Unknown 09/27/2025 2:25 PM EST 09/28/2025 5:01 AM EST Narrative [facility] - 10/01/2025 10:13 PM EST FASTING:NO us Leroy Da Silva MD LAB BLOOD ORDERABLES Final Resul t Performing Organization Address City/[facility]/ZIP Co de Phone Number [facility] [address], [place] [address], [place] [phone] [employer] [address] [address] * Abth-1-Zffxhhrzhkiy I Antibodies, IgG/IgA/IgM (09/27/2025 2:25 PM EST) Beta2-Glycoprotein I (IgG) <2.0 <20.0 U/mL 09/30/2025 11:07 AM EST [employer] Comment: Value Interpretation ----- < 20.0 Antibody not detected > or = 20.0 Antibody detected Beta2-Glycoprotein I (IgM) <2.0 <20.0 U/mL 09/30/2025 11:07 AM EST [employer] Comment: Value Interpretation ----- < 20.0 Antibody not detected > or = 20.0 Antibody detected Beta2-Glycoprotein I (IgA) <2.0 <20.0 U/mL 09/30/2025 11:07 AM EST [employer] Comment: Value Interpretation ----- < 20.0 Antibody not detected > or = 20.0 Antibody detected The antiphospholipid antibody syndrome (APS) is a clinical-pathologic correlation that includes a clinical event (e.g. arterial or venous thrombosis, morbidity) and persistent positive antiphospholipid antibodies (IgM, IgG Cardiolipin or b2GPI antibodies greater than the 99th percentile; or a lupus anticoagulant). International consensus guidelines for APS suggest waiting at least 12 weeks before retesting to confirm antibody persistence. The Systemic Lupus International Collaborating [facility] immunological classification criteria for systemic lupus erythematosus (SLE) include testing for isotype IgA, which has yet to be incorporated into APS criteria. Low level antiphospholipid antibodies may sometimes be detected in the setting of infection, drug therapy or aging. For additional information, please refer to http://education.Prepared Response/faq/BRP893 (This link is being provided for informational/ educational purposes only.) Blood Structure of peripheral vein / Unknown 09/27/2025 2:25 PM EST 09/29/2025 4:22 PM EST Narrative [facility] - 10/01/2025 10:13 PM EST FASTING:NO us Leroy Da Silva MD LAB BLOOD ORDERABLES Final Resul t Performing Organization Address City/[facility]/ZIP Co de Phone Number [facility] [address], [place] [address], [place] [phone] [facility]/[address] * PTT (09/27/2025 2:25 PM EST) aPTT 26 23 - 32 sec 09/28/2025 8:36 AM EST [employer] [facility] Comment: This test has not been validated for monitoring unfractionated heparin therapy. For testing that is validated for this type of therapy, please refer to the Heparin Anti-Xa assay (test code 86552). For additional information, please refer to http://education.Trefis/faq/BBH619 (This link is being provided for informational/educational purposes only.) Blood Structure of peripheral vein / Unknown 09/27/2025 2:25 PM EST 09/28/2025 4:43 AM EST Narrative [facility] - 10/01/2025 10:13 PM EST FASTING:NO us Leroy Da Silva MD LAB BLOOD ORDERABLES Final Resul t Performing Organization Address City/[facility]/ZIP Co de Phone Number [facility] [address], [facility] [place] [address], [place] [phone] [employer] [facility] [address] [place] [address] * Rheumatoid factor (09/27/2025 2:25 PM EST) Rheumatoid Factor <10 <14 IU/mL 09/28/2025 7:04 AM EST [employer] [facility] Blood Structure of peripheral vein / Unknown 09/27/2025 2:25 PM EST 09/28/2025 5:01 AM EST Narrative [facility] - 10/01/2025 10:13 PM EST FASTING:NO us Leroy Da Silva MD LAB BLOOD ORDERABLES Final Resul t Performing Organization Address City/[facility]/ZIP Co de Phone Number [facility] [address], [facility] [place] [address], [place] [phone] [facility] [employer] [facility] [address] [place] [address] * Complement C3 (09/27/2025 2:25 PM EST) Complement Component C3C 135 83 - 193 mg/dL 09/28/2025 4:16 AM EST [facility] [employer] [facility] Blood Structure of peripheral vein / Unknown 09/27/2025 2:25 PM EST 09/28/2025 1:49 AM EST Narrative [facility] - 10/01/2025 10:13 PM EST FASTING:NO us Leroy Da Silva MD LAB BLOOD ORDERABLES Final Resul t Performing Organization Address [facility]/ZIP Co de Phone Number [facility] [address], [facility] [place] [address], [place] [phone] [facility] [employer] [facility] [address] [place] [address] * Complement C4 (09/27/2025 2:25 PM EST) Complement Component C4C 17 15 - 57 mg/dL 09/28/2025 4:16 AM EST [facility] [employer] [facility] Blood Structure of peripheral vein / Unknown 09/27/2025 2:25 PM EST 09/28/2025 1:49 AM EST Narrative [facility] - 10/01/2025 10:13 PM EST FASTING:NO us Leroy Da Silva MD LAB BLOOD ORDERABLES Final Resul t Performing Organization Address City/[facility] Co de Phone Number [facility] [address], [facility] [place] [address], [place] [phone] [employer] [facility] [address] [place] [address] * TEJINDER Specific Antibody w/Reflex to [place] (09/27/2025 2:25 PM EST) Pathologist [facility] TEJINDER Screen, Immunoassay NEGATIVE NEGATIVE 09/28/2025 8:42 PM EST [employer] [facility] Comment: A negative TEJINDER Multiplex indicates the absence of detectable antibodies to component analytes consisting of double stranded DNA (dsDNA), chromatin, ribonucleoprotein (TRANSPORT CONDUCTOR), Wagner/TRANSPORT CONDUCTOR (Sm/TRANSPORT CONDUCTOR), Wagner (Sm), SS-A, SS-B, Dorinda-1, centromere B, Scl-70 and ribosomal P. A negative result should be interpreted in the context of the clinical and laboratory findings and does not rule out autoimmune disease characterized by other autoantibody specificities such as rheumatoid arthritis, autoimmune hepatitis, primary biliary cirrhosis, autoimmune thyroiditis, Iain's disease, pernicious anemia, autoimmune neuropathies, vasculitis, celiac disease, and bullous disease. For additional information, please refer to http://[employer].Trefis/faq/NPY162 (This link is being provided for informational/ educational purposes only.) Blood Structure of peripheral vein / Unknown 09/27/2025 2:25 PM EST 09/28/2025 5:01 AM EST Narrative [facility] - 10/01/2025 10:13 PM EST FASTING:NO Leroy Da Silva MD LAB BLOOD ORDERABLES Final Resul t [facility] [address] [facility] [address], [place] [address], [employer] [facility] [address] [place] [address] * Phosphatidylserine/Prothrombin (PS/PT) Antibodies (IgG, IgM) (09/24/2025 3:21 PM EST) Pathologist [facility] Phosphatidylser ine/Prothrombin IgG <9 <=30 U 09/27/2025 3:49 AM EST [facility] Comment: For additional information, please refer to http://[employer].Trefis/faq/KSL612 (This link is being provided for informational/ educational purposes only.) Phosphatidylser ine/Prothrombin IgM <9 <=30 U 09/27/2025 3:49 AM EST [facility]) Comment: For additional information, please refer to http://education.[employer].Xytis/faq/IZQ586 (This link is being provided for informational/ educational purposes only.) Blood Structure of peripheral vein / Unknown Venipuncture / Unknown 09/24/2025 3:21 PM EST 09/24/2025 3:29 PM EST Narrative [facility]) - 09/27/2025 3:49 AM EST [facility] Received Date: us Leroy Da Silva MD LAB BLOOD ORDERABLES Final Resul t [facility]) [address] [place], [place] , * Direct Antiglobulin Test (09/24/2025 3:21 PM EST) Direct Antiglobulin Test Negative 09/24/2025 4:27 PM EST [facility] Blood Structure of peripheral vein / Unknown Venipuncture / Unknown 09/24/2025 3:21 PM EST 09/24/2025 3:51 PM EST us Leroy Da Silva MD LAB BLOOD BANK TEST ORDERABLES F inal Result [facility] [address] [place] [address], * XR Abdomen, Outside Result (09/21/2025) 09/21/2025 [facility] [employer] [facility] AMB EXTERNAL RESULT PROCEDURE S Final Result * LAB - SCANNED (09/21/2025) Only the most recent of2 resultswithin the time period is included. us [employer] [facility] LAB HISTORICAL RESULTS Final Result * XR C-Spine, Outside Result (08/10/2025) 08/10/2025 us [employer] [facility] AMB EXTERNAL RESULT PROCEDURE S Final Result from Last 3 Months Insurance Care Teams Supervisor [employer] Relationship Specialty Start Date End Date Fernando Acosta PA [address] [place] [address] PCP - General 08/27/25
--- OUTSIDE RECORDS SUMMARY | 2025-11-02 16:52 | XMS_ITS | Encounter Summary ---
Author Organization [facility] Address [address] [place] [address] Phone Care Team Providers Care Ticket Sales Supervisor Name Role Phone Zara Roberts SUPERVISOR [employer]ARD Primary Care Provider Un available Encounter Details Date Type Department Care Team (Late st Contact Info) Description 11/26/2011 Documentation EM Family Medicine [address] [place] [address] Family Medicine, Physician [address] [place], [place] [address] Social History Tobacco Use Types Packs/Day Years [...] on filedocumented in this encounter Care Teams Ticket Sales Supervisor Relationship Specialty Start Date End Date Zara Roberts NP PCP - General 06/28/17 documented as of this encounter
--- OUTSIDE RECORDS SUMMARY | 2025-11-02 16:52 | XMS_ITS | Encounter Summary ---
Author Organization [facility] Address [address] [place] [address] Phone Care Team Providers Care Library Attendant Name Role Phone Zara Roberts METAL WINDOW SCREEN ASSEMBLER Primary Care Provider Un available Encounter Details Date Type Department Care Team (Late st Contact Info) Description 07/04/2017 Conversion Encounter [facility] - [address] [address] Social History Tobacco Use Types Packs/Day Years [...] on filedocumented in this encounter Care Teams Library Attendant Relationship Specialty Start Date End Date Zara Roberts NP PCP - General 06/28/17 documented as of this encounter
== END 2025-11-02 13:53 | disposition home or self-care (01) ==
LOC: HO.HOP 12:58
PROVIDERS: Visit Provider Clinical Nurse Specialist Psychiatric/Mental Health
DX: F39 Unspecified mood [affective] disorder (principal); F41.1 Generalized anxiety disorder; F90.2 Attention-deficit hyperactivity disorder, combined type
CPT/HCPCS: 99215